=== PATIENT | female | born 1960 | race Caucasian/White ===

== ENCOUNTER 2017-04-03 21:10 | Emergency (ER) | payer MEDICAID, OTHER ==
[~2017-04-03] VITALS: Ht 144.8 cm; Wt 37.6 kg
[~2017-04-03 21:10] MED LIST: /BACIOPOI; /OL10DISTA; /QUET10TA; /QUET10TA PO; /QUET25TA OR; ALBU17IN INH; ALBUTEROL INHALATION; AMBI10TA OR; AMBI10TA PO; AMBI5TAB; AMBI5TAB PO; AMBIEN PO; AMO500 PO; ATIV0.5T; ATIV0.5T3 PO; ATIV1TAB2; AUG875 PO; BENZ5TA PO; COLA100C2; COLA100C2 OR; COLACE PO; DARVOCET-N PO; DEPA1TAB3 PO; DEPA250T32 PO; DEPA500T; DEPA500T OR; DEPA500T2 OR; DOXYCYC100 PO; GABAPOW41 PO; HALO2TA PO; KLON0.5T; LACT10SO PO; LORA2TAB; MAPA325T2 PO; NAPROSY500 PO; NEUR100C PO; NEUR250S PO; NEUR300C; NEUR300C OR; NEUR600T; NEXIUM40 PO; PRED20TAB PO; PREVACID30 PO; QUET20XRTB; QUET30TA; QUET30XR; RISP2TAB12; SENOKOTTAB PO; SERO1TAB PO; SERO200T; SERO200T OR; SERO50TA PO; ZIPR80CAP OR; ZITH250T PO; ZYPR10TA; ZYPR10TA OR; ZYPR20TA; ZYPR5TAB; ZYPREXA PO; omnicef PO
[2017-04-03] MEDS ORDERED: AMBI10TA PO (22:38)
[2017-04-03] MEDS ORDERED: GABA-279 PO (22:38)
[2017-04-03] MEDS ORDERED: SERO1TAB PO (22:38)
[2017-04-03] MEDS ORDERED: GABAPENTIN 100 MG CAP PO ONE (22:45)
[2017-04-03] MEDS ORDERED: ONDANSETRON 4 MG ORAL DISINTEGRATING TAB (S0181) PO ONE (22:45)
[2017-04-03 22:51] VITALS: BP 123/60
== END 2017-04-03 23:02 | disposition home or self-care (01) ==
LOC: M ED 22:24
DX: Z76.0 Encounter for issue of repeat prescription (principal); F99 Mental disorder, not otherwise specified; F17.210 Nicotine dependence, cigarettes, uncomplicated

== ENCOUNTER 2017-12-25 12:07 | Inpatient (IN) | payer MEDICAID, OTHER ==
[2017-12-25 12:39] LABS: BASO # 0.1 10^3/uL (0.0-0.2); BASO % 0.7 % (0.0-1.0); EOS % 0.3 % (0.0-3.0); HEMATOCRIT 43.4 % (36.0-47.0); HEMOGLOBIN 14.4 g/dl (12.0-16.0); IMMATURE GRANULOCYTE % 0.3 % (0-3.0); LYMPH # 1.5 10^3/uL (1.5-4.5); LYMPH % 22.6 % (24.0-44.0); MEAN CORPUSCULAR HEMOGLOBIN 31.2 pg (27.0-33.0); MEAN CORPUSCULAR HGB CONC 33.2 g/dl (32.0-36.5); MEAN CORPUSCULAR VOLUME 93.9 fl (80.0-96.0); MONO # 0.4 10^3/uL (0.0-0.8); MONO % 5.5 % (0.0-5.0); NEUTROPHILS # 4.7 10^3/uL (1.8-7.7); NEUTROPHILS % 70.6 % (36.0-66.0); PLATELET COUNT, AUTOMATED 251 10^3/uL (150-450); RED BLOOD COUNT 4.62 10^6/uL (4.00-5.40); RED CELL DISTRIBUTION WIDTH 12.8 % (11.5-14.5); WHITE BLOOD COUNT 6.7 10^3/uL (4.0-10.0)
[2017-12-25 12:50] LABS: INR 1.04; PROTHROMBIN TIME 13.8 SECONDS (12.4-14.5)
[2017-12-25 12:51] LABS: PARTIAL THROMBOPLASTIN TIME 28.4 SECONDS (26.8-37.9)
[2017-12-25 13:22] LABS: ALBUMIN/GLOBULIN RATIO 1.11 (1.00-1.93); ALKALINE PHOSPHATASE 62 U/L (45-117); ALT/SGPT 13 U/L (12-78); ANION GAP 16 MEQ/L (8-16); AST/SGOT 11 U/L (7-37); BILIRUBIN,DIRECT 0.2 MG/DL (0.0-0.2); BILIRUBIN,TOTAL 0.5 MG/DL (0.2-1.0); BLOOD UREA NITROGEN 21 MG/DL (7-18); CALCIUM LEVEL 9.4 MG/DL (8.5-10.1); CARBON DIOXIDE LEVEL 23 MEQ/L (21-32); CHLORIDE LEVEL 101 MEQ/L (98-107); CPK CREATINE PHOSPHOKINASE 57 U/L (26-192); CREATININE FOR GFR 1.14 MG/DL (0.55-1.30); FREE T4 1.33 NG/DL (0.76-1.46); GLOMERULAR FILTRATION RATE 52.5 (>51); GLUCOSE, FASTING 214 MG/DL (70-100); LIPASE 61 U/L (73-393); POTASSIUM SERUM 3.6 MEQ/L (3.5-5.1); SODIUM LEVEL 140 MEQ/L (136-145); TOTAL PROTEIN 7.6 GM/DL (6.4-8.2); TROPONIN I < 0.02 NG/ML (< 0.10)
[2017-12-25 13:28] LABS: MB/CK RELATIVE INDEX 1.75 (< OR =4)
[2017-12-25 14:33] LABS: ETHYL ALCOHOL (ETHANOL) 0.003 % (0.000-0.010)
[2017-12-25 14:33] LABS: ACETAMINOPHEN LEVEL < 2.0 UG/ML (10.0-30.0); SALICYLATE LEVEL 6.3 MG/DL (5.0-30.0)
[2017-12-25 14:59] LABS: AMPHETAMINES LEVEL URINE NEGATIVE (NEGATIVE); BARBITURATES URINE NEGATIVE (NEGATIVE); BENZODIAZEPINES URINE NEGATIVE (NEGATIVE); CANNABINOIDS URINE NEGATIVE (NEGATIVE); COCAINE METABOLITE URINE NEGATIVE (NEGATIVE); METHADONE URINE NEGATIVE (NEGATIVE); OPIATES URINE NEGATIVE (NEGATIVE); PHENCYCLIDINE URINE NEGATIVE (NEGATIVE)
[2017-12-25] MEDS ORDERED: MOM 30ML SUSPENSION UDC PO (18:15)
[2017-12-25] MEDS: zolPIDEM TARTRATE 10MG TAB PO (21:00)
[2017-12-25] MEDS: QUEtiapine FUMARATE 50 MG TAB PO (21:00)
[2017-12-26] MEDS: INFLUENZA QUADRIVALENT PF VACCINE 0.5ML SYRINGE (90686) IM (08:44)
[2017-12-26] MEDS: LORazepam 1 MG TAB PO (08:45)
[2017-12-26] MEDS: GABAPENTIN 100 MG CAP PO ×2 (14:41→22:11)
[2017-12-26] MEDS: ACETAMINOPHEN TAB 650MG DOSE (2X325MG) PO (15:15)
[2017-12-26 16:03] LABS: VITAMIN B12 LEVEL 560 PG/ML (247-911)
[2017-12-26 16:04] LABS: FOLATE 13.1 NG/ML (>5.4)
[2017-12-26] MEDS ORDERED: QUEtiapine FUMARATE 50 MG TAB PO (21:00)
[2017-12-26] MEDS: zolPIDEM TARTRATE 5 MG TAB PO (22:10)
[2017-12-26] MEDS: QUEtiapine FUMARATE 50 MG TAB PO (22:11)
[2017-12-27] MEDS: QUEtiapine FUMARATE 100 MG TAB PO ×2 (08:33→21:12)
[2017-12-27] MEDS: GABAPENTIN 100 MG CAP PO ×2 (08:33→21:12)
[2017-12-28] MEDS: GABAPENTIN 100 MG CAP PO ×2 (08:36→20:29)
[2017-12-28] MEDS: QUEtiapine FUMARATE 100 MG TAB PO (08:36)
[2017-12-28] MEDS ORDERED: PILL CUTTER/CRUSHER XX (12:45)
[2017-12-28] MEDS: QUEtiapine FUMARATE 50 MG TAB PO (20:29)
[2017-12-28] MEDS: MAALOX 30 ML SUSP *UDC PO (20:29)
[2017-12-28] MEDS: zolPIDEM TARTRATE 5 MG TAB PO (20:29)
[2017-12-29] MEDS: GABAPENTIN 100 MG CAP PO (08:18)
[2017-12-29] MEDS: QUEtiapine FUMARATE 50 MG TAB PO (08:18)
== END 2017-12-29 11:05 | disposition home or self-care (01) | DRG 885 ==
LOC: M ED 12:07 → M ED INP 18:03 → M PSY 20:29
DX: F20.9 Schizophrenia, unspecified (principal); R41.9 Unspecified symptoms and signs involving cognitive functions and awareness; F17.210 Nicotine dependence, cigarettes, uncomplicated; R94.31 Abnormal electrocardiogram [ECG] [EKG]; Z79.899 Other long term (current) drug therapy

== ENCOUNTER 2018-12-18 12:53 | Inpatient (IN) | payer MEDICAID, OTHER ==
[~2018-12-18] VITALS: Ht 144.8 cm; Wt 45.6 kg
[~2018-12-18 12:53] MED LIST changes: +GABA-1171 PO; +PATIENT COMMENT; +QUET5TAB PO
[2018-12-18] MEDS ORDERED: QUET1TAB8 PO (13:55)
[2018-12-18] MEDS ORDERED: TOPI25TA10 PO (13:55)
[2018-12-18] MEDS ORDERED: TOPA50TA8 PO (13:59)
[2018-12-18 14:12] LABS: HEMATOCRIT 38.5 % (36.0-47.0); HEMOGLOBIN 12.7 g/dl (12.0-15.5); MEAN CORPUSCULAR HEMOGLOBIN 30.3 pg (27.0-33.0); MEAN CORPUSCULAR VOLUME 91.9 fl (80.0-96.0); PLATELET COUNT, AUTOMATED 279 10^3/uL (150-450); RED BLOOD COUNT 4.19 10^6/uL (4.00-5.40); WHITE BLOOD COUNT 5.5 10^3/uL (4.0-10.0)
[2018-12-18 14:42] LABS: AMPHETAMINES LEVEL URINE NEGATIVE (NEGATIVE); BARBITURATES URINE NEGATIVE (NEGATIVE); BENZODIAZEPINES URINE NEGATIVE (NEGATIVE); CANNABINOIDS URINE NEGATIVE (NEGATIVE); COCAINE METABOLITE URINE NEGATIVE (NEGATIVE); METHADONE URINE NEGATIVE (NEGATIVE); OPIATES URINE NEGATIVE (NEGATIVE); PHENCYCLIDINE URINE NEGATIVE (NEGATIVE)
[2018-12-18 14:54] LABS: ACETAMINOPHEN LEVEL < 2.0 UG/ML (10.0-30.0); ALBUMIN 3.9 GM/DL (3.2-5.2); ALT/SGPT 32 U/L (12-78); BILIRUBIN,DIRECT 0.1 MG/DL (0.0-0.2); BILIRUBIN,TOTAL 0.4 MG/DL (0.2-1.0); BLOOD UREA NITROGEN 9 MG/DL (7-18); CALCIUM LEVEL 8.8 MG/DL (8.5-10.1); CARBON DIOXIDE LEVEL 29 MEQ/L (21-32); CHLORIDE LEVEL 105 MEQ/L (98-107); ETHYL ALCOHOL (ETHANOL) < 0.003 % (0.000-0.010); GLOMERULAR FILTRATION RATE > 60.0 (>51); GLUCOSE, FASTING 114 MG/DL (70-100); POTASSIUM SERUM 4.2 MEQ/L (3.5-5.1); SALICYLATE LEVEL 2.8 MG/DL (5.0-30.0); SODIUM LEVEL 140 MEQ/L (136-145); TOTAL PROTEIN 7.5 GM/DL (6.4-8.2)
[2018-12-19] MEDS ORDERED: NEUR100C PO (08:08)
[2018-12-19] MEDS ORDERED: QUEtiapine FUMARATE 100 MG TAB PO ONE (08:15)
[2018-12-19] MEDS ORDERED: GABAPENTIN 100 MG CAP PO ONE (08:15)
[2018-12-19] MEDS ORDERED: TOPIRAMATE (TopAMAX) 25 MG TAB PO ONE (08:15)
[2018-12-19] MEDS ORDERED: MOM 30ML SUSPENSION UDC PO PRN (13:00)
[2018-12-19] MEDS ORDERED: traZODone 50 MG TAB PO PRN (13:00)
[2018-12-19] MEDS ORDERED: MAALOX 30 ML SUSP *UDC PO PRN (13:00)
[2018-12-19] MEDS ORDERED: ACETAMINOPHEN TAB 650MG DOSE (2X325MG) PO PRN (13:00)
[2018-12-19] MEDS ORDERED: RISP50INJ IM (13:22)
[2018-12-19 14:22] VITALS: BP 104/56
[2018-12-19] MEDS: GABAPENTIN 100 MG CAP PO SCH ×2 (16:47→21:00)
[2018-12-19] MEDS: QUEtiapine FUMARATE 100 MG TAB PO SCH (16:47)
[2018-12-19] MEDS: TOPIRAMATE (TopAMAX) 25 MG TAB PO SCH (21:00)
[2018-12-19] MEDS: FAMOTIDINE 20 MG TAB PO SCH (21:00)
[2018-12-19] MEDS: QUEtiapine FUMARATE 200 MG TAB PO SCH (21:00)
[2018-12-20] MEDS: QUEtiapine FUMARATE 100 MG TAB PO SCH ×2 (08:15→16:07)
[2018-12-20] MEDS: GABAPENTIN 100 MG CAP PO SCH ×3 (08:16→21:00)
[2018-12-20] MEDS: TOPIRAMATE (TopAMAX) 25 MG TAB PO SCH ×2 (08:16→21:00)
[2018-12-20] MEDS: FAMOTIDINE 20 MG TAB PO SCH ×2 (08:16→21:00)
[2018-12-20] MEDS ORDERED: NICOTINE 21MG/24HR 1 EA TRANSDERMAL TD PRN (09:00)
[2018-12-20] MEDS ORDERED: risperiDONE LONG-ACTING 25 MG/2 ML INJ (J2794) IM SCH (09:00)
--- NOTE | 2018-12-20 09:02 | HPEPDOC ---
[facility] Medical History & Physical Date of Admission Dec 19, 2018 History and Physical PCP: None ATTENDING: Dr. Alan Anglin HPI: 58yoF admitted to [facility] for unspecified depressive disorder, being medically examined today. The pt was apparently recently d/c from [facility] and has been non compliant with her medications. No acute medical complaints today. Denies any fevers, chills, weakness, fatigue, MONTGOMERY, CP, SOB, cough, palpitations, abdominal pain, N/V/D or changes in bowel or bladder habits. PMHx: Schizophrenia Schizoaffective disorder Bipolar disorder History of psychosis edentulous PSHX: Abdominal hernia repair SOCHX: Resides in: [place] Marital Status: Kids: None Employment: Unemployed Tobacco use: One pack per day ETOH: Denies Illicit Drugs: Denies IV Drug Use: Denies Tattoos done unprofessionally: Denies FAMHX: Mother: , unknown Father: , unknown Siblings: Alive, unknown Children: None Unexpected deaths due to medical reasons: None. ROS: As noted in HPI, otherwise 11pt ROS of systems reviewed and remarkable only for LMP unknown. PE: GEN: 57 yo F, appears stated age. Well-nourished, well developed. No acute distress. Alert and oriented x 3. Disorganized speech, tangential. HEENT: Normocephalic, atraumatic. Pupils are equal, round, and reactive to light. Extraocular movements are intact. No nystagmus appreciated. Sclera are nonicteric. Conjunctiva without injection. Nose midline. Nasal turbinates without bogginess. EACs both patent BL. TMs both visualized and melara with good cone of light, no bulging or erythema. No facial asymmetry. Moist mucous membranes. Edentulous. Pharynx pink and moist, no cobblestoning. Neck supple, trachea midline. No lymphadenopathy or thyromegaly appreciated. CHEST: Regular rate and rhythm, +S1, +S2 LUNGS: Clear to auscultation bilaterally. No wheezes, rales, or rhonchi. Breathing appears symmetric and easy. Patient is speaking in full sentences. No accessory muscle use. ABD: Round, soft, non-tender, non-distended. +Bowel sounds throughout. No rebound or guarding. No costovertebral angle tenderness. EXT: Pulses 2+ bilaterally dorsalis pedis and radial. No lower extremity edema appreciated. SKIN: [place], dry, warm. Capillary refill <2sec. No rashes. NEURO: Alert and oriented x 3. Cranial nerves III-XII are intact. No focal deficits appreciated. EKG: SINUS RHYTHM NSTTW ABNORMALITY NO PRIOR FOR COMPARISON Electronically Signed On 12-25-2017 17:49:48 EDT by Teagan Petty A&P: 57yoF admitted to [facility] for unspecified depressive disorder 1. Psych. Plan per Psychiatry. EKG on file. 2. Nicotine dependence. Patch available. 3. Follow up. No Primary Care Provider. Will attempt to establish PCP on discharge. 4. Staff member Natasha HOLDER present throughout exam. Vital Signs Vital Signs Date Time Temp Pulse Resp B/P (MAP) Pulse Ox O2 Delivery O2 Flow Rate FiO2 12/19/18 14:22 99.0 102 16 104/56 (72) 12/19/18 06:05 99 Room Air Laboratory Data Labs 24H Item Value Date Time White Blood Count 5.5 10^3/uL 12/18/18 1400 Red Blood Count 4.19 10^6/uL 12/18/18 1400 Hemoglobin 12.7 g/dl 12/18/18 1400 Hematocrit 38.5 % 12/18/18 1400 Mean Corpuscular Volume 91.9 fl 12/18/18 1400 Mean Corpuscular Hemoglobin 30.3 pg 12/18/18 1400 Mean Corpuscular Hemoglobin Concent 33.0 g/dl 12/18/18 1400 Red Cell Distribution Width 13.1 % 12/18/18 1400 Platelet Count 279 10^3/uL 12/18/18 1400 Sodium Level 140 MEQ/L 12/18/18 1400 Potassium Level 4.2 MEQ/L 12/18/18 1400 Chloride Level 105 MEQ/L 12/18/18 1400 Carbon Dioxide Level 29 MEQ/L 12/18/18 1400 Anion Gap 6 MEQ/L L 12/18/18 1400 Blood Urea Nitrogen 9 MG/DL 12/18/18 1400 Creatinine 0.70 MG/DL 12/18/18 1400 Glomerular Filtration Rate > 60.0 12/18/18 1400 Fasting Glucose 114 MG/DL H 12/18/18 1400 Calcium Level 8.8 MG/DL 12/18/18 1400 Total Bilirubin 0.4 MG/DL 12/18/18 1400 Direct Bilirubin 0.1 MG/DL 12/18/18 1400 Aspartate Amino Transf (AST/SGOT) 15 U/L 12/18/18 1400 Alanine Aminotransferase (ALT/SGPT) 32 U/L 12/18/18 1400 Alkaline Phosphatase 79 U/L 12/18/18 1400 Total Protein 7.5 GM/DL 12/18/18 1400 Albumin 3.9 GM/DL 12/18/18 1400 Albumin/Globulin Ratio 1.08 12/18/18 1400 Thyroid Stimulating Hormone (TSH) 2.720 uIU/ML 12/18/18 1400 Salicylates Level 2.8 MG/DL L 12/18/18 1400 Urine Opiates Screen NEGATIVE 12/18/18 1400 Urine Methadone Screen NEGATIVE 12/18/18 1400 Acetaminophen Level < 2.0 UG/ML L 12/18/18 1400 Urine Barbiturates Screen NEGATIVE 12/18/18 1400 Urine Phencyclidine Screen NEGATIVE 12/18/18 1400 Urine Amphetamines Screen NEGATIVE 12/18/18 1400 Urine Benzodiazepines Screen NEGATIVE 12/18/18 1400 Urine Cocaine Metabolite Screen NEGATIVE 12/18/18 1400 Urine Cannabinoids Screen NEGATIVE 12/18/18 1400 Ethyl Alcohol Level < 0.003 % 12/18/18 1400 Home Medications Scheduled Gabapentin (Neurontin) 100 Mg Cap, 100 MG PO TID Quetiapine Fumerate (Quetiapine Fumarate) 100 Mg Tab, 200 MG PO QHS Risperidone (Risperdal Consta) 50 Mg/2 Ml Inj, [address] ASHWINI GARZA FOR INJECTION ON 12/20 Topiramate (Topiramate) 25 Mg Tab, 25 MG PO DAILY Allergies Coded Allergies: No Known Drug Allergy (Verified Allergy, Unknown, 01/08/13) Delmis Pryor Dec 20, 2018 09:01
--- NOTE | 2018-12-20 11:08 | MHHPEPDOC ---
General Date Of Admission: Dec 19, 2018 Legal Status: 9.39 Chief Complaint "I ate poisoned meat last night and I've been sick all day" History of Present Illness HISTORY OF THE PRESENT ILLNESS: Patient is a 58 -year-old , female, with a history of schizoaffective d/o, over 31 admits [facility] for psychosis, d/c [facility] 12/11 after 3mo stay who was brought in by PD on 9.60 placed by Izabella GALVIN AOT coordinator due to bt not fulfilling AOT obligations after d/c [facility]. Per ED pt has been noncompliant on her medication and with her treatment, decompensating, hyperverbal, disorganized, and having bizarre paranoid delusions. Stated in the ED, "I ate poisoned meat last night and I've been sick all day." Pt is a poor historian so history gathered from previous records Psychiatric Review of Systems N[place]ka (4 or more days of): expansive mood, grandiosity, decreased need for sleep, talkativity, pressured, flight of ideas, distractibility Psychosis: delusions, paranoia, disorganization Anxiety: situational anxiety, stressor related anxiety Anxiety/ 6 months or more of: restlessness, keyed up, difficulty concentrating, irritability Past Psychiatric History Previous Psychiatric Diagnosis: schizoaffective d/o Previous Psychiatric Admissions: over 31 admission [facility], last 12/2017 for psychosis. D/c [facility] after 3mo stay on 12/11/18 Suicide Attempts: denies Psychiatric Follow-up: Izabella GALVIN AOT coordinator Psychiatric medications: seroquell, topamax, neurontin, risperdal consta q2wk next dose due 12/20/18 Past Medical History Medical Problems denies Head Injury: No Seizures: No Hospitalizations: Yes Surgeries: Yes (: Abdominal hernia repair) Family Medical/Psychiatric HX Medical Problems noncontributory Psychiatric Disorders: No Addiction: No Suicide Attemps/Completions: No Addiction History other (utox neg) Social History Childhood: Born in [place], parents, no siblings Abuse/Trauma:none known Current Living Situation: lives alone in [facility] Education: highest grade was 9th grade Employment: worked as regulatory assistant, currently on disability Social Support: Izabella GALVIN AOT coordinator Legal: none known Marital: , no children Born in [place], parents, no siblings, highest grade was 9th grade, worked as regulatory assistant, , lives alone in [facility], no children Mental Status Examination General Appearance: well groomed, ds/not appear stated age (older), personal clothing Build: thin, other (petitie) Demeanor: very figety, other (hyperactive) Eye Contact: fair Activity: anxious, other (hyperactive) Behavior: cooperative, hyperactive Speech: rapid, pressured Mood: elevated, hypomanic Mood "speedy" Affect: anxious, other (hyperactive) Thought Process: concrete, tangential, associative, racing Thought Content (Delusions): bizarre, denies SI, HI, AVH, paranoia, delusions Thought Content (Other): preoccupied Thought Content (Aggressive): none reported Perception (Hallucinations): none reported Perception (Other): none reported Cognition (Impairment of): attention/concentration, ability to abstract Cognition(Intelligence Est.): borderline Oriented: Awake, Alert, Oriented times three Insight: fair Judgment: Fair Psychosis: Associations, Abstract Thinking Diagnoses Schizoaffective d/o Assessment Pt seen in room, was sleeping but woke up quickly when aroused. Hyperverbal and tangential going into rapid conversation about missing an appt her shot so juedged called and ordered her here "or maybe it was different," confused about times and can't remember exactly if she received risperdal consta IM this am but thinks she did. (per record received it at 9am this am) Endorses feeling "speedy" but improved from previous. Slightly disorganized. Appears hypomanic. Denies SI/HI, hallucinations. Feels safe here. Initial Treatment Plan 1. Patient was admitted on a [9.39] status. 2. Complete history was obtained. 3. With patients permission, family will be contacted and database will be expa nded. 4. Patients medication regimen will be reviewed and changed accordingly. 5. Patient will be provided with protected environment. 6. Patient will be treated with individual, group, and milieu therapies. 7. Patient will receive supportive psych-education. 8. Discharge planning will commence immediately. 9. Outpatient follow-up treatment will be strongly recommended. 10. The initial treatment plan will focus initially on: * Depression. * Risk for suicide. * Substance abuse. ESTIMATED LENGTH OF STAY: - DAYS. TIME SPENT COUNSELING AND COORDINATING INITIAL CARE: minutes. Vital Signs Vital Signs Date Time Temp Pulse Resp B/P (MAP) Pulse Ox O2 Delivery O2 Flow Rate FiO2 12/19/18 14:22 99.0 102 16 104/56 (72) 12/19/18 06:05 99 Room Air Medications Scheduled Gabapentin (Neurontin) 100 Mg Cap, 100 MG PO TID, (Reported) Quetiapine Fumerate (Quetiapine Fumarate) 100 Mg Tab, 200 MG PO QHS, (Reported) Risperidone (Risperdal Consta) 50 Mg/2 Ml Inj, 50 MG IM Q2WK, (Reported) SANTIAGO GRAY DR. APPT FOR INJECTION ON 12/20 Topiramate (Topiramate) 25 Mg Tab, 25 MG PO DAILY, (Reported) Allergies Coded Allergies: No Known Drug Allergy (Verified Allergy, Unknown, 01/08/13) CLAUDIA NUNEZ DO Dec 20, 2018 11:08 am
[2018-12-20 18:00] VITALS: BP 100/50
[2018-12-20] MEDS ORDERED: LORazepam 1 MG TAB PO PRN (19:00)
[2018-12-20] MEDS: QUEtiapine FUMARATE 200 MG TAB PO SCH (21:00)
[2018-12-21 06:18] VITALS: BP 108/56
[2018-12-21] MEDS: QUEtiapine FUMARATE 100 MG TAB PO SCH (08:15)
[2018-12-21] MEDS: FAMOTIDINE 20 MG TAB PO SCH (08:15)
[2018-12-21] MEDS: GABAPENTIN 100 MG CAP PO SCH (08:15)
[2018-12-21] MEDS: TOPIRAMATE (TopAMAX) 25 MG TAB PO SCH (08:15)
--- NOTE | 2018-12-21 09:34 | MHDSPDOC ---
[facility] Discharge Summary Discharge Summary DATE OF ADMISSION: Dec 19, 2018 at 12:52 pm DATE OF DISCHARGE: Dec 21, 2018 DISCHARGE DIAGNOSES: Schizoaffective d/o REASON FOR ADMISSION: Patient is a 58 -year-old , female, with a history of schizoaffective d/o, over 31 admits [facility] for psychosis, d/c [facility] / after 3mo stay who was brought in by PD on 960 placed by Izabella Rich [facility] AOT coordinator due to bt not fulfilling AOT obligations after d/c [facility]. Per ED pt has been noncompliant on her medication and with her treatment, decompensating, hyperverbal, disorganized, and having bizarre paranoid delusions. Stated in the ED, "I ate poisoned meat last night and I've been sick all day." Pt is a poor historian so history gathered from previous records CONSULTANTS INVOLVED: none TREATMENT AND PROGRESS ON THE UNIT : Pt was admitted to [facility], seen for psychiatric assessment and restarted on her outpatient seroquel, gabapentin, topiramate. She was administered her risperdal consta yesterday that she tolerated well and symptoms improved to baseline paranoia, hyperactivity, rapid speech, anxiety. She was provided trazodone 50mg qhs prn insomnia. Pt found her medications beneficial and tolerated them well. She attended groups daily during her stay. Her symptoms improved with treatment. On day of discharge she denied depression, anxiety, insomnia, SI/HI, hallucinations. Bizarre delusions and paranoia at baseline but appears to be functioning very (best seen) well per staff based on her history. She was discharged home with follow-up at [facility] and [facility]. She felt safe for discharge DISCHARGE ASSESSMENT: Pt seen in milieu with d/c planner/scheduler stating she just here to get her shot and should be able to go home today as she has a lot of things to do there. Hyperverbal and anxious about going home. States someone, not me, told her she was going home and she's been here long enough. Pt is at baseline hyperactive, paranoid, has bizarre thoughts, anxious, and hyperverbal but appears to be functioning very well (best seen) per staff based on her history. Received risperdal consta IM yesterday and is tolerating it well with benefit in symptoms. Denies depression, anxiety, insomnia, SI/HI, hallucinations. Bizarre delusions and paranoia at baseline. Feels safe to be discharge home to the care of AOT. MENTAL STATUS EXAMINATION ON DISCHARGE: General Appearance: well groomed, ds/not appear stated age (older), personal clothing Build: thin, other (petitie) Demeanor: anxious Eye Contact: fair Activity: anxious, other (hyperactive) Behavior: cooperative, at baseline hyperactive Speech: at baseline rapid, pressured Mood: irritable Mood "I need to go home" Affect: anxious, other (hyperactive) Thought Process: concrete, at baseline tangential, associative, racing Thought Content (Delusions): denies SI, HI, AVH, at baseline paranoia and delusions Thought Content (Other): at baseline preoccupied Thought Content (Aggressive): none reported Perception (Hallucinations): none reported Perception (Other): none reported Cognition (Impairment of): at baseline attention/concentration, ability to abstract Cognition(Intelligence Est.): borderline Oriented: Awake, Alert, Oriented times three Insight: fair Judgment: Fair Psychosis: Associations, Abstract Thinking MEDICATIONS ON DISCHARGE: Neurontin 100 MG PO TID Quetiapine 200 MG PO QHS, Risperdal Consta 50 Mg IM Q2WK Topiramate 25 MG PO DAILY PLAN/FOLLOWUP ARRANGEMENTS: D/c home with [facility] and [facility]. The amount of time spent in the coordination of care for this patient was approximately 30 minutes. Vital Signs/I&Os Vital Signs Date Time Temp Pulse Resp B/P (MAP) Pulse Ox O2 Delivery O2 Flow Rate FiO2 12/21/18 06:18 97.8 81 12 108/56 (73) 12/19/18 06:05 99 Room Air Medications Scheduled Gabapentin (Neurontin) 100 Mg Cap, 100 MG PO TID, (Reported) Quetiapine Fumerate (Quetiapine Fumarate) 100 Mg Tab, 200 MG PO QHS, (Reported) Risperidone (Risperdal Consta) 50 Mg/2 Ml Inj, 50 MG IM Q2WK, (Reported) SANTIAGO GRAY DR. APPKishor FOR INJECTION ON 12/20 Topiramate (Topiramate) 25 Mg Tab, 25 MG PO DAILY, (Reported) Allergies Coded Allergies: No Known Drug Allergy (Verified Allergy, Unknown, 01/08/13) CLAUDIA NUNEZ DO Dec 21, 2018 9:20 am
[2018-12-21] MEDS ORDERED: RISP50INJ IM (12:32)
== END 2018-12-21 12:55 | disposition home or self-care (01) | DRG 750 ==
LOC: M ED 12:53 → M ED INP 12-19 12:52 → M PSY 12-19 13:39
PROVIDERS: ADMIT Psychiatry & Neurology Psychiatry; ATTEND Psychiatry & Neurology Psychiatry
DX: F25.9 Schizoaffective disorder, unspecified (principal); F17.200 Nicotine dependence, unspecified, uncomplicated; Z79.899 Other long term (current) drug therapy

== ENCOUNTER 2020-03-29 08:26 | Inpatient (IN) | payer MEDICARE, OTHER ==
[~2020-03-29] VITALS: Ht 144.8 cm; Wt 44.5 kg
[~2020-03-29 08:26] MED LIST changes: -/OL10DISTA; -/QUET10TA; -/QUET10TA PO; -/QUET25TA OR; -HALO2TA PO; +HALO2TAB26 PO; -MAPA325T2 PO; +MAPA325T8 PO; +QUET100T2 PO; -QUET20XRTB; -QUET30XR; +QUET50TA3 PO; -QUET5TAB PO; +RISP50INJ IM; +SERO1TAB; +SERO1TAB3 OR; +SERO200T43; +SERO300T20; +TOPA50TA8 PO; +TOPI25TA10 PO; +ZYPR1TAB4
[2020-03-29] MEDS ORDERED: MELATAB3 PO (08:37)
[2020-03-29] MEDS ORDERED: RISP-9 PO (08:37)
[2020-03-29] MEDS ORDERED: methylPREDNISolone 125MG 2ML VIAL IV ONE (09:45)
[2020-03-29] MEDS: COMBIVENT RESPIMAT 100-20MCG INHALER 4GM INH SCH ×4 (09:45→10:15)
[2020-03-29 09:48] LABS: BASO % 0.4 % (0.0-1.0); EOS % 0.3 % (0.0-3.0); HEMATOCRIT 35.5 % (36.0-47.0); HEMOGLOBIN 10.6 g/dl (12.0-15.5); LYMPH # 0.9 10^3/uL (1.5-5.0); LYMPH % 9.2 % (24.0-44.0); MEAN CORPUSCULAR HEMOGLOBIN 25.4 pg (27.0-33.0); MEAN CORPUSCULAR HGB CONC 29.9 g/dl (32.0-36.5); MEAN CORPUSCULAR VOLUME 84.9 fl (80.0-96.0); MONO # 0.8 10^3/uL (0.0-0.8); MONO % 8.5 % (0.0-5.0); NEUTROPHILS # 8.1 10^3/uL (1.5-8.5); NEUTROPHILS % 81.3 % (36.0-66.0); PLATELET COUNT, AUTOMATED 248 10^3/uL (150-450); RED BLOOD COUNT 4.18 10^6/uL (4.00-5.40); WHITE BLOOD COUNT 9.9 10^3/uL (4.0-10.0)
--- NOTE | 2020-03-29 09:56 | REP ---
Portable chest x-ray: Single view. History: Dyspnea and cough. Comparison chest x-ray: December 25, 2017. Findings: Oxygen delivery tubing is seen. Heart size is increased compared with the December 25, 2017 study. Pulmonary vasculature is cephalized and somewhat congested. Mildly prominent interstitial markings. No jennifer pleural effusion or pulmonary edema. Impression: Cardiomegaly with vascular congestion, question mild CHF. Heart is enlarged compared with the December 25, 2017 study. Electronically Signed by Carlos Draper MD 03/29/2020 09:47 A
[2020-03-29 10:19] LABS: ALBUMIN 3.2 GM/DL (3.2-5.2); ALT/SGPT 30 U/L (12-78); BILIRUBIN,DIRECT 0.2 MG/DL (0.0-0.2); BILIRUBIN,TOTAL 0.5 MG/DL (0.2-1.0); BLOOD UREA NITROGEN 9 MG/DL (7-18); CALCIUM LEVEL 8.4 MG/DL (8.5-10.1); CARBON DIOXIDE LEVEL 35 MEQ/L (21-32); CHLORIDE LEVEL 100 MEQ/L (98-107); CK-MB VALUE MASS 2.3 NG/ML (<3.6); CPK CREATINE PHOSPHOKINASE 148 U/L (26-192); CREATININE FOR GFR 0.69 MG/DL (0.55-1.30); GLOMERULAR FILTRATION RATE > 60.0 (>51); GLUCOSE, FASTING 101 MG/DL (70-100); MB/CK RELATIVE INDEX 1.55 (< OR =4); NT-PRO BNP 1287 PG/ML (<125); POTASSIUM SERUM 4.1 MEQ/L (3.5-5.1); SODIUM LEVEL 140 MEQ/L (136-145); TOTAL PROTEIN 6.5 GM/DL (6.4-8.2); TROPONIN I < 0.02 NG/ML (< 0.10)
[2020-03-29] MEDS ORDERED: FUROSEMIDE 40MG/4ML VIAL (J1940) IV ONE (10:30)
--- NOTE | 2020-03-29 12:32 | HPEPDOC ---
[facility] Medical History & Physical Date of Admission Mar 29, 2020 Date of Service: Mar 29, 2020 Attending Physician: Luz Maria Loya MD History and Physical CHIEF COMPLAINT: Bedbug infestation, shortness of breath HISTORY OF PRESENT ILLNESS: Patient is a 51 atrial female with past medical history of schizoaffective disorder, schizophrenia, bipolar disorder, history of psychosis, insomnia who presented to [facility] ER after being found under picnic table near her residence. When the patient was found she was covered in bedbugs. The patient states she was sleeping outside because her house has been infested, worsening over the past 1 year. It was noted that the patient had bites all over her body and she was brought to the ER for further evaluation. In the emergency room the patient's vital signs were stable, labs were unremarkable. The patient was found to be hypoxic with PCO2 of 30s. The patient was placed on 3 L of oxygen and O2 sat increased to 95%. Chest x-ray showed Cardiomegaly with vascular congestion, question mild CHF. Heart is enlarged compared with the December 25, 2017 study. BNP was over 1000. Troponin was negative. ECG showed sinus rhythm with possible left atrial enlargement, possible right ventricular hypertrophy, nonspecific T-wave abnormalities. When compared to prior on file there were similar. The patient states that she has had chest pain over the past 1 year localized anteriorly, nonradiating, 3 out of 10 on pain scale, pressure-like. She states sometimes is associated with shortness of breath, which she is also had over the past 1 year. The patient is a smoker but has no diagnosis of COPD on file. She had no wheezing on exam to suspect COPD exacerbation. The patient was given Lasix and DuoNeb's in the emergency room which improved her shortness of breath somewhat but the patient still required several liters of oxygen. Over the course of her time in the emergency room they also attempted decontaminate her from bedbugs. The patient complained of intermittent bilateral lower extremity cramping, potassium was normal. Magnesium and phosphorus were pending. The patient was admitted for further treatment of acute congestive heart failure, type unknown and bedbug infestation. On admission patient denied MONTGOMERY, CP, cough, palpitations, abdominal pain, N/V/D or changes in bowel or bladder habits. PMHx: Schizophrenia Schizoaffective disorder Bipolar disorder History of psychosis PSHX: Abdominal hernia repair SOCHX: Resides in: [place] Marital Status: Kids: None Employment: Unemployed Tobacco use: One pack per day ETOH: Denies Illicit Drugs: Denies IV Drug Use: Denies Tattoos done unprofessionally: Bekah Has had several inpatient mental health admission for psychiatric history FAMHX: Mother: , unknown Father: , unknown Siblings: Alive, unknown Children: None Unexpected deaths due to medical reasons: None. ALLERGIES: Please see below. HOME MEDICATIONS: Please see below PHYSICAL EXAMINATION: CONSTITUTIONAL: Confused at times, needing redirection often. No acute distress, resting comfortably, AAO x 3 EYES: PERRLA, EOM intact,mild swelling around eyes HENT, MOUTH: Normocephalic, atraumatic, moist mucous membranes NECK: SUPPLE, no JVD, no lymphadenopathy, no carotid bruit CV: Regular rate and rhythm, S1S2 normal, no murmurs/rubs/gallops RESPIRATORY: crackles in bilateral lung bases. no rales/rhonchi/wheezes GI: BS positive in 4 quadrants, soft, nontender, nondistended, no rebound or guarding, no organomegaly : Deferred MUSCULOSKELETAL: thin extremities, Normal ROM. No cyanosis, clubbing, swelling, joint deformity, extremity edema INTEGUMENTARY: Insect punctate bite burrell all over body, what appears to be almost "petechial" rash but may be bites. NEUROLOGIC: Cranial Nerves II-XII are intact, no focal deficits PSYCHIATRIC: Mood and affect are normal LABORATORY DATA: Please see below IMAGING: CXR: Cardiomegaly with vascular congestion, question mild CHF. Heart is enlarged c ompared with the December 25, 2017 study. ASSESSMENT: 89-year-old female admitted for acute hypoxic respiratory failure likely secondary to congestive heart failure, new diagnosis. PLAN: 1. Acute hypoxic respiratory failure secondary to congestive heart failure, new diagnosis. Please see plan below for treatment. 2. Congestive heart failure exacerbation, new diagnosis. BNP 1287, troponin negative. Chest x-ray above. Hypoxia with O2 sat dropping as low as in the 30s, currently on 3 L. Started on Lasix; however, cautious with twice a day dosing due to lower than normal blood pressure. Holding beta narayan due to lower than normal blood pressure. Follow-up echocardiogram, telemetry. 3. Bedbug infestation. The patient was decontaminated some in the emergency room. We'll start triamcinolone cream for itching when necessary. Due to the patient's mental health situation and residing in infested residence, social work has been consult it to further assess. Contact precautions. 4. Hypotension, baseline. The patient is very tiny and upon review of prior admissions, baseline systolic BP ranges anywhere between [address]. Cautious with diuresing or considering adding a beta narayan with this blood pressure. Monitor on telemetry. 5. Lower leg cramping. Potassium originally normal, follow-up repeat potassium, magnesium and phosphorus. Replace when necessary. 6. Schizophrenia/schizoaffective/bipolar disorder/history of psychosis. The patient has an odd personality; however, is not out of control and can be redirected with questioning currently. Resume home psychiatric medications. 7. Rash. Appears petechial; however, platelets are within normal limits. Unknown if this rash is reactive to the bug bites but it is present all over her body. Monitor closely. 8. DVT prophylaxis. SCDs, teds. Avoid anticoagulation with current rash. DISPOSITION: Currently admitted under inpatient status. Will need to discuss case with social work, as her current residence is infested with bedbugs. Discharge plan is not yet known due to this. Vital Signs Vital Signs Date Time Temp Pulse Resp B/P (MAP) Pulse Ox O2 Delivery O2 Flow Rate FiO2 03/29/20 10:45 114/66 (82) 03/29/20 10:41 99 03/29/20 10:24 18 03/29/20 10:11 98 Nasal Cannula 2.0 03/29/20 08:35 98.3 Laboratory Data Labs 24H Laboratory Tests 2 03/29/20 09:34: POC pH (Misc Panel) 7.370, POC Base Excess (Misc Panel) 8.0H, POC Saturated Percent O2 (Misc) 71L, POC pO2 (Misc Panel) 39.0*L, POC pCO2 (Misc Panel) 57.3H, POC HCO3 (Misc Panel) 33.1H, POC Total CO2 (Misc Panel) 35.0H 03/29/20 09:35: Immature Granulocyte % (Auto) 0.3, Neutrophils (%) (Auto) 81.3H, Lymphocytes (%) (Auto) 9.2L, Monocytes (%) (Auto) 8.5H, Eosinophils (%) (Auto) 0.3, Basophils (%) (Auto) 0.4, Neutrophils # (Auto) 8.1, Lymphocytes # (Auto) 0.9L, Monocytes # (Auto) 0.8, Eosinophils # (Auto) 0.0, Basophils # (Auto) 0.0, Nucleated Red Blood Cells % (auto) 0.2H, Anion Gap 5L, Glomerular Filtration Rate > 60.0, Lactic Acid Level 1.0, Calcium Level 8.4L, Total Bilirubin 0.5, Direct Bilirubin 0.2, Aspartate Amino Transf (AST/SGOT) 15, Alanine Aminotransferase (ALT/SGPT) 30, Alkaline Phosphatase 67, Total Creatine Kinase 148, Creatine Kinase MB 2.3, Creatine Kinase MB Relative Index 1.55, Troponin I < 0.02, QW-Ltk-S-Type Natriuretic Peptide 1287H, Total Protein 6.5, Albumin 3.2, Albumin/Globulin Ratio 1.0L, Thyroid Stimulating Hormone (TSH) 2.060 CBC/BMP Laboratory Tests 03/29/20 09:35 Microbiology Microbiology 03/29/20 Blood Culture, Received Pending 03/29/20 Blood Culture, Received Pending 03/29/20 Respiratory Virus Panel (PCR) (SUZANNE) - Final, Complete Home Medications Scheduled Gabapentin (Neurontin) 100 Mg Cap, 100 MG PO TID Melatonin (Melatonin) 5 Mg Tablet, 5 MG PO QHS pt states that she has not started this yet Risperidone (Risperidone) 2 Mg Tablet, 2 MG PO BID Allergies Coded Allergies: No Known Drug Allergies (Verified Allergy, Unknown, 03/29/20) A-FIB/CHADSVASC A-FIB History Current/History of A-Fib/PAF?: No Current PO Anticoag Therapy: No Age/Risk Factor Scoring CHADSVASC: CHADSVASC Response (Comments) Value Age Risk Factor Age < 65 years old 0 Gender Risk Factor Female 1 Hx of CHF No 0 Hx of HTN No 0 Hx of Stroke/TIA/or VTE No 0 Hx of Diabetes No 0 Hx of Vascular Disease No 0 Total 1 Treatment Treatment ordered: NONE (petechial rash ) Luz Maria Loya MD Mar 29, 2020 12:32
[2020-03-29] MEDS ORDERED: TRIAMCINOLONE ACET 0.1% CREAM 15 GM TOP PRN (12:45)
[2020-03-29] MEDS ORDERED: ALBUTEROL SULFATE 2.5 MG/0.5 ML INH NEB SOLN NEB PRN (14:00)
[2020-03-29 14:07] VITALS: BP 101/56
[2020-03-29 15:20] LABS: PHOSPHORUS LEVEL 4.6 MG/DL (2.5-4.9)
[2020-03-29] MEDS ORDERED: FUROSEMIDE 20MG/2ML VIAL (J1940) IV SCH (17:00)
[2020-03-29] MEDS: GABAPENTIN 100 MG CAP PO SCH ×2 (17:21→21:23)
[2020-03-29] MEDS: IPRATROPIUM 0.5MG/ALBUTEROL 2.5MG INH SOL UD 3ML (DUONEB) NEB SCH (18:13)
[2020-03-29] MEDS: risperiDONE 2 MG TAB PO SCH (21:22)
[2020-03-29 22:00] VITALS: BP 102/65
[2020-03-30] MEDS: IPRATROPIUM 0.5MG/ALBUTEROL 2.5MG INH SOL UD 3ML (DUONEB) NEB SCH ×5 (00:41→20:09)
[2020-03-30 06:00] VITALS: BP 121/73
[2020-03-30 06:08] LABS: MEAN CORPUSCULAR HEMOGLOBIN 25.3 pg (27.0-33.0); MEAN CORPUSCULAR HGB CONC 29.4 g/dl (32.0-36.5); MEAN CORPUSCULAR VOLUME 86.1 fl (80.0-96.0); PLATELET COUNT, AUTOMATED 234 10^3/uL (150-450); RED BLOOD COUNT 3.95 10^6/uL (4.00-5.40); WHITE BLOOD COUNT 8.6 10^3/uL (4.0-10.0)
[2020-03-30 06:34] LABS: BLOOD UREA NITROGEN 15 MG/DL (7-18); CALCIUM LEVEL 8.6 MG/DL (8.5-10.1); CARBON DIOXIDE LEVEL 39 MEQ/L (21-32); CHLORIDE LEVEL 101 MEQ/L (98-107); CREATININE FOR GFR 0.68 MG/DL (0.55-1.30); GLOMERULAR FILTRATION RATE > 60.0 (>51); GLUCOSE, FASTING 98 MG/DL (70-100); POTASSIUM SERUM 4.3 MEQ/L (3.5-5.1); SODIUM LEVEL 142 MEQ/L (136-145)
[2020-03-30] MEDS: GABAPENTIN 100 MG CAP PO SCH ×3 (09:29→20:08)
[2020-03-30] MEDS: risperiDONE 2 MG TAB PO SCH ×2 (09:29→20:08)
[2020-03-30] MEDS: FUROSEMIDE 40MG/4ML VIAL (J1940) IV SCH (09:34)
[2020-03-30] MEDS: methylPREDNISolone 125MG 2ML VIAL IV SCH ×2 (12:09→20:08)
[2020-03-30 14:00] VITALS: BP 143/73
--- NOTE | 2020-03-30 15:41 | ECGEPIP ---
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
--- NOTE | 2020-03-30 17:11 | IPNPDOC ---
Date Seen The patient was seen on 03/30/20. Progress Note SUBJECTIVE: Increased wheeziness this AM, neg 2440 ml/24 hrs. Does not seem to have awareness of why she is here. I have repetitively told her why she is here; however, she does not seem to grasp what I am saying. Possibly denial vs. not having capacity. Consulting psychiatry to assess capacity to make medical decisions. Denies chest pain, increased shortness of breath, n/v/d. OBJECTIVE: VITAL SIGNS: Please see below PHYSICAL EXAMINATION: CONSTITUTIONAL: Confused at times, still needing redirection often and needing us to repeat to her what we're saying. No acute distress, resting comfortably, AAO x 2. Uknown baseline. EYES: PERRLA, EOM intact,mild swelling around eyes HENT, MOUTH: Normocephalic, atraumatic, moist mucous membranes. NECK: SUPPLE, no JVD, no lymphadenopathy, no carotid bruit CV: Regular rate and rhythm, S1S2 normal, no murmurs/rubs/gallops RESPIRATORY:wheezing bilaterally today, improved crackles in bilateral lung bases. no rales/rhonchi GI: BS positive in 4 quadrants, soft, nontender, nondistended, no rebound or guarding, no organomegaly : Deferred MUSCULOSKELETAL: thin extremities, Normal ROM. No cyanosis, clubbing, swelling, joint deformity, extremity edema INTEGUMENTARY: Insect punctate bite burrell all over body, what appears to be almost "petechial" rash but may be bites. NEUROLOGIC: Cranial Nerves II-XII are intact, no focal deficits PSYCHIATRIC: Mood and affect are normal LABORATORY DATA: Please see below IMAGING: CXR: Cardiomegaly with vascular congestion, question mild CHF. Heart is enlarged compared with the December 25, [address] head: Pending ASSESSMENT: 89-year-old female admitted for acute hypoxic respiratory failure likely secondary to congestive heart failure (new diagnosis), COPD exacerbation, confusion r/o cause. PLAN: 1. Acute hypoxic respiratory failure secondary to congestive heart failure (new diagnosis) and COPD exacerbation. Please see plan below for treatment. 2. Congestive heart failure exacerbation, new diagnosis. Neg 2.4 L/24 hrs. Currently remains on 3 L NC. Not on home O2, smoker. Echo today. C/w lasix, holding BB due to lower than normal BP. Follow-up echocardiogram, telemetry. 3. COPD exacerbation. Smoker, increased wheezing today, remaining on 3 L NC. Started methylprednisolone Q8hrs, duonebs ATC, albuterol, levofloxacin, acapella. 4. Confusion, acute vs. chronic, neurologic vs. systemic? Does not understand, after repetative reinforcement by myself, why she is here, what she is here for. Awake , hard of hearing but alertWhen I tell her she is here for "heart failure" and explain what it is, she says "no. I am here for bed bugs". My concern is her lack of capacity to understand current situation. She lives in [facility], bed bug infested home and states she has for years. She was found sleeping under a picnic table covered in bed bugs the size of "gum drops". When asked why she didn't say anything to anyone, she says I have been for years". Unknown b aseline, multiple psychiatric diagnoses. F/u daily labs, Vit B12, Vit D, TSH, UA, UDS, ESR, HUSSEIN. Consider AM cortisol. Discussed case with Dr. Lowe psychiatry. Will start with CT head, psych evaluation. 5. Bedbug infestation. No bites appear infected. C/w triamcinolone cream for itching when necessary. Due to the patient's mental health situation and residing in infested residence, social work has been consult it to further assess. Contact precautions. 4. Hypotension, baseline. The patient is very tiny and upon review of prior admissions, baseline systolic BP ranges anywhere between [address]. Cautious with diuresing or considering adding a beta narayan with this blood pressure. Monitor on telemetry. 5. Lower leg cramping. resolved. 6. Schizophrenia/schizoaffective/bipolar disorder/history of psychosis. The patient has an odd personality; however, is not out of control and can be red irected with questioning currently. C/w home psychiatric medications, f/u psych consult. . 7. Petechial rash. Appears petechial; however, platelets are within normal limits. Unknown if this rash is reactive to the bug bites but it is present all over her body. Monitor closely. 8. Redness around eyes. Patient is a poor historian. Appears puffy? No muscle weakness or other plaque like skin changes. F/u closely. 9. Tobacco use. Nicotine patch. 10. DVT prophylaxis. SCDs, teds. Avoid anticoagulation with current rash. DISPOSITION: Currently admitted under inpatient status. Patient cannot return home to prior situation due to bed beg infestation. Capacity to make medical decisions is questioned, psychiatry consulted today to evaluate. Discharge plan unknown currently. VS, I&O, 24H, Fishbone Vital Signs/I&O Vital Signs Date Time Temp Pulse Resp B/P (MAP) Pulse Ox O2 Delivery O2 Flow Rate FiO2 03/30/20 14:00 99.0 77 17 143/73 (96) 95 Nasal Cannula 3.0 I&O- Last 24 Hours up to 6 AM 03/30/20 06:00 Intake Total 360 ml Output Total 2800 ml Balance -2440 ml Laboratory Data 24H LABS Laboratory Tests 2 03/30/20 05:43: Nucleated Red Blood Cells % (auto) 0.2H, Anion Gap 2L, Glomerular Filtration Rate > 60.0, Calcium Level 8.6 CBC/BMP Laboratory Tests 03/30/20 05:43 Microbiology Microbiology 03/29/20 Blood Culture - Preliminary, Resulted No growth after 24 hours . All specim... 03/29/20 Blood Culture - Preliminary, Resulted No growth after 24 hours . All specim... 03/29/20 Respiratory Virus Panel (PCR) ([facility]) - Final, Complete Current Medications Current Medications Medications (Trade) Dose Ordered Sig/Selena Route PRN Reason Start Time Stop Time Status Last Admin Dose Admin Albuterol Sulfate (Proventil Neb) 2.5 mg Q2HP PRN NEB SOB/WHEEZING 03/29/20 14:00 03/30/20 09:38 Albuterol/ Ipratropium (Combivent Respimat 100-20mcg) 4 puff Q20M INH 03/29/20 09:45 03/29/20 10:26 DC 03/29/20 09:45 Albuterol/ Ipratropium (Duoneb (Ipr 0.5mg/Alb 2.5mg)) 3 ml RQ6H NEB 03/29/20 14:00 03/30/20 14:30 Furosemide (LASIX injection) 30 mg BID@0900,1700 IV 03/29/20 17:00 03/29/20 14:02 DC Furosemide (LASIX injection) 30 mg DAILY IV 03/30/20 09:00 03/30/20 09:34 Gabapentin (Neurontin) 100 mg TID PO 03/29/20 16:00 03/30/20 16:32 Home Med (Med Rec Complete!) ASDIRECTED XX 03/29/20 12:30 03/29/20 12:26 DC Methylprednisolone (SOLUmedrol) 60 mg Q8H IV 03/30/20 12:00 03/30/20 12:09 Risperidone (RisperDAL) 2 mg BID PO 03/29/20 21:00 03/30/20 09:29 Triamcinolone Acetonide (Kenalog 0.1% Cream) 1 dose Q2HP PRN TOP ITCHING/SWELLING 03/29/20 12:45 03/29/20 21:23 Allergies Coded Allergies: No Known Drug Allergies (Verified Allergy, Unknown, 03/29/20) Luz Maria Loya MD Mar 30, 2020 17:11
--- NOTE | 2020-03-30 17:54 | REPVR ---
PROCEDURE INFORMATION: Exam: CT Head Without Contrast Exam date and time: 03/30/2020 5:40 PM Age: 59 years old Clinical indication: Altered mental status/memory loss; Confusion or disorientation TECHNIQUE: Imaging protocol: Computed tomography of the head without contrast. Radiation optimization: All CT scans at this facility use at least one of these dose optimization techniques: automated exposure control; mA and/or kV adjustment per patient size (includes targeted exams where dose is matched to clinical indication); or iterative reconstruction. COMPARISON: No relevant prior studies available. FINDINGS: Brain: No acute intracranial hemorrhage, cerebral edema, or midline shift. Ventricles: No hydrocephalus. Bones/joints: There is an old left medial orbital wall fracture. Sinuses: No acute sinusitis. Mastoid air cells: Visualized mastoid air cells are well aerated. Soft tissues: Unremarkable. IMPRESSION: No acute intracranial abnormality. Electronically signed by: Rajat Degroot On 03/30/2020 17:54:35 PM
[2020-03-30] MEDS: LevoFLOXacin 500 MG TABLET PO SCH (19:48)
[2020-03-30 20:02] LABS: THYROID STIMULATING HORMONE 0.546 uIU/ML (0.358-3.740)
[2020-03-30 22:00] VITALS: BP 144/81
--- NOTE | 2020-03-30 22:18 | MHIPNPDOC ---
[facility] Progress Note Progress Note DATE OF SERVICE: 03/30/20 HISTORY: As per Dr. Loya: "Patient is a 51 atrial female with past medical history of schizoaffective disorder, schizophrenia, bipolar disorder, history of psychosis, insomnia who presented to [facility] ER after being found under picnic table near her residence. When the patient was found she was covered in bedbugs. The patient states she was sleeping outside because her house has been infested, worsening over the past 1 year. It was noted that the patient had bites all over her body and she was brought to the ER for further evaluation. In the emergency room the patient's vital signs were stable, labs were unremarkable. The patient was found to be hypoxic with PCO2 of 30s. The patient was placed on 3 L of oxygen and O2 sat increased to 95%. Chest x-ray showed Cardiomegaly with vascular congestion, question mild CHF. Heart is enlarged compared with the December 25, 2017 study. BNP was over 1000. Troponin was negative. ECG showed sinus rhythm with possible left atrial enlargement, possibl e right ventricular hypertrophy, nonspecific T-wave abnormalities. When compared to prior on file there were similar. The patient states that she has had chest pain over the past 1 year localized anteriorly, nonradiating, 3 out of 10 on pain scale, pressure-like. She states sometimes is associated with shortness of breath, which she is also had over the past 1 year. The patient is a smoker but has no diagnosis of COPD on file. She had no wheezing on exam to suspect COPD exacerbation. The patient was given Lasix and DuoNeb's in the emergency room which improved her shortness of breath somewhat but the patient still required several liters of oxygen. Over the course of her time in the emergency room they also attempted decontaminate her from bedbugs. The patient complained of intermittent bilateral lower extremity cramping, potassium was normal. Magnesium and phosphorus were pending. The patient was admitted for further treatment of acute congestive heart failure, type unknown and bedbug infestation. On admission patient denied [place], CP, cough, palpitations, abdominal pain, N/V/D or changes in bowel or bladder habits. VITAL SIGNS: See below. NEW TEST RESULTS: See below CURRENT MEDICATIONS: See below. MENTAL STATUS EXAMINATION: Patient is a 59 year old female, who is alert, superficially cooperative, laying in bed, dressed in hospital gown, sleepy . Speech: Is a little bit slurred, normal in rate, tone and volume but she has delayed responses. Thought processes including: she is not tangential, she is not circumstantial, b ut her thought process is slow, it seems as if she has some difficulty processing some concepts. Thought content: She denies SI/HI, she denies TAV hallucinations, denies thought delusions. Abstract reasoning, and computation: not assessed at this time, patient doesn't want to continue with the assessment, she tells me she wants to see me tomorrow, she says she only wants to sleep Description of associations: Somewhat loose Description of abnormal or psychotic thoughts: She denies thought delusions, denies TAV hallucinations, she is not responding to internal stimuli Judgment: Limited Insight: Limited Orientation: she knows she is at the hospital, she is oriented to person (herself) and partially to date and time Recent and remote memory: limited at this time ( it could be because she is sleepy and she says she is very tired) Attention span and concentration: easily distracted Fund of knowledge: unable to assess, patient is not cooperating and she is easily distracted. Mood: mildly irritable Affect: congruent with mood. DIAGNOSES: Schizophrenia Schizoaffective disorder Bipolar disorder History of psychosis ASSESSMENT: Patient seems to be confused at this time but this is probably because is late already ( 10 P.M). She was sleeping when I zoomed with her and it was difficult to wake her up. When she opened her eyes it took her sometime to be able to speak and follow the conversation. She said she was not suicidal, not homicidal and not psychotic. She is not responding to internal stimuli but her thought process is slow and she has delayed responses. I told her why I needed to evaluate her and I said I wanted to make sure that she understood why she was at the hospital. I talked to her about the bed bugs and she said "oh yeah, the bed bugs". She didn't want to talk to me anymore but it was because she was "very tired" as she said and she told me she would be willing to talk to me tomorrow. She doesn't give me the impresion of being psychotic at this time. Spoke with Dr. Loya this afternoon and said I would consider doing a CT scan of the head to r/o other medical problems. I will contact Dr. Loya tomorrow and will zoom with the patient again tomorrow. medication adjustments at this time. MANAGEMENT PLAN: Continue with current treatment plan. Zoom with her tomorrow TIME SPENT: 15 minutes. Vital Signs Vital Signs Date Time Temp Pulse Resp B/P (MAP) Pulse Ox O2 Delivery O2 Flow Rate FiO2 03/30/20 14:00 99.0 77 17 143/73 (96) 95 Nasal Cannula 3.0 Laboratory Data 24H Labs Laboratory Tests 2 03/30/20 05:43: Nucleated Red Blood Cells % (auto) 0.2H, Anion Gap 2L, Glomerular Filtration Rate > 60.0, Calcium Level 8.6 03/30/20 19:04: Erythrocyte Sedimentation Rate 10, Thyroid Stimulating Hormone (TSH) 0.546 CBC/BMP Laboratory Tests 03/30/20 05:43 Current Medications Current Medications Medications (Trade) Dose Ordered Sig/Selena Route PRN Reason Start Time Stop Time Status Last Admin Dose Admin Albuterol Sulfate (Proventil Neb) 2.5 mg Q2HP PRN NEB SOB/WHEEZING 03/29/20 14:00 03/30/20 09:38 Albuterol/ Ipratropium (Combivent Respimat 100-20mcg) 4 puff Q20M INH 03/29/20 09:45 03/29/20 10:26 DC 03/29/20 09:45 Albuterol/ Ipratropium (Duoneb (Ipr 0.5mg/Alb 2.5mg)) 3 ml RQ6H NEB 03/29/20 14:00 03/30/20 14:30 Furosemide (LASIX injection) 30 mg BID@0900,1700 IV 03/29/20 17:00 03/29/20 14:02 DC Furosemide (LASIX injection) 30 mg DAILY IV 03/30/20 09:00 03/30/20 09:34 Gabapentin (Neurontin) 100 mg TID PO 03/29/20 16:00 03/30/20 20:08 Home Med (Med Rec Complete!) ASDIRECTED XX 03/29/20 12:30 03/29/20 12:26 DC Levofloxacin (Levaquin) 500 mg DAILY@1800 PO 03/30/20 18:00 03/30/20 19:48 Methylprednisolone (SOLUmedrol) 60 mg Q8H IV 03/30/20 12:00 03/30/20 20:08 Nicotine (Nicoderm Cq 14mg) 1 patch DAILY TD 03/31/20 09:00 Risperidone (RisperDAL) 2 mg BID PO 03/29/20 21:00 03/30/20 20:08 Triamcinolone Acetonide (Kenalog 0.1% Cream) 1 dose Q2HP PRN TOP ITCHING/SWELLING 03/29/20 12:45 03/29/20 21:23 Allergies Coded Allergies: No Known Drug Allergies (Verified Allergy, Unknown, 03/29/20) PRUDENCE MOSHER MD Mar 30, 2020 22:18
[2020-03-31] MEDS: IPRATROPIUM 0.5MG/ALBUTEROL 2.5MG INH SOL UD 3ML (DUONEB) NEB SCH ×5 (01:55→20:00)
[2020-03-31] MEDS: methylPREDNISolone 125MG 2ML VIAL IV SCH ×3 (04:27→20:29)
[2020-03-31 06:00] VITALS: BP 101/62
[2020-03-31 06:14] LABS: HEMATOCRIT 34.2 % (36.0-47.0); HEMOGLOBIN 10.1 g/dl (12.0-15.5); MEAN CORPUSCULAR HEMOGLOBIN 25.4 pg (27.0-33.0); MEAN CORPUSCULAR HGB CONC 29.5 g/dl (32.0-36.5); MEAN CORPUSCULAR VOLUME 85.9 fl (80.0-96.0); PLATELET COUNT, AUTOMATED 220 10^3/uL (150-450); RED BLOOD COUNT 3.98 10^6/uL (4.00-5.40); WHITE BLOOD COUNT 8.3 10^3/uL (4.0-10.0)
[2020-03-31 06:40] LABS: BLOOD UREA NITROGEN 16 MG/DL (7-18); CALCIUM LEVEL 8.9 MG/DL (8.5-10.1); CARBON DIOXIDE LEVEL 40 MEQ/L (21-32); CHLORIDE LEVEL 99 MEQ/L (98-107); CREATININE FOR GFR 0.51 MG/DL (0.55-1.30); GLOMERULAR FILTRATION RATE > 60.0 (>51); GLUCOSE, FASTING 119 MG/DL (70-100); POTASSIUM SERUM 4.4 MEQ/L (3.5-5.1); SODIUM LEVEL 137 MEQ/L (136-145)
--- NOTE | 2020-03-31 08:06 | ECHO ---
DATE OF STUDY: 03/30/2020 REFERRING PHYSICIAN: Dr. Isiah Loya INDICATION: Heart failure unspecified. HEIGHT: 145 cm. WEIGHT: 45 kg. 2-D MEASUREMENTS: Ventricular septum: 0.89 cm Posterior wall: 1.03 cm Left ventricle diastole: 3.8 cm Left atrium: 3.0 cm Aortic root: 2.6 cm Aortic annulus: 2.0 cm Inferior vena cava: 2.1 cm (more than 50% respiratory variation) DOPPLER MEASUREMENTS: Aortic valve velocity: 154 cm/sec LVOT velocity: 113 cm/sec LVOT VTI: 20.4 cm No aortic regurgitation Trace mitral regurgitation Mitral E velocity: 86.4 cm/sec Mitral A velocity: 76.0 cm/sec Mitral deceleration time: 173 ms Mild tricuspid regurgitation Estimated right ventricular systolic pressure 54-59 mmHg assuming a right atrial pressure of 5-10 mmHg No pulmonic regurgitation MITRAL ANNULAR TISSUE DOPPLER: E prime septal: 8.3 cm/sec E prime lateral: 9.9 cm/sec DESCRIPTION: The rhythm was sinus. Image quality was fair. This was a 2-D, M-mode, color flow Doppler and pulse wave Doppler examination and included mitral annular tissue Doppler. CONCLUSIONS: 1. Suggestive of moderate elevation of estimated right ventricle systolic pressure (4-59 mmHg). Mild tricuspid regurgitation. Normal appearing tricuspid leaflets. Appearance of mild right ventricle dilatation. Normal RV systolic function. 2. Very small pericardial effusion which was circumferential. Pericardial effusion measured 4 mm over the inferior wall of the ventricles and 7 mm over the posterior wall of the left ventricle. 3. Normal left ventricle internal dimensions and wall thickness. Hyperdynamic LV systolic function. LVEF 70-75% by visual estimate. No regional LV wall motion abnormalities. Normal LV diastolic function for age. 4. Otherwise normal appearing echocardiogram Doppler findings.
[2020-03-31] MEDS: QUEtiapine FUMARATE 12.5 MG HALF-TAB PO SCH ×2 (09:00→20:29)
[2020-03-31] MEDS: GABAPENTIN 100 MG CAP PO SCH ×4 (09:00→20:29)
[2020-03-31] MEDS: risperiDONE 2 MG TAB PO SCH ×3 (09:00→20:29)
[2020-03-31] MEDS: FUROSEMIDE 40MG/4ML VIAL (J1940) IV SCH (10:38)
[2020-03-31] MEDS: NICOTINE 14 MG/24 HR TRANSDERMAL TD SCH (10:39)
[2020-03-31 11:32] LABS: ABG BASE EXCESS 11.1 (-2.0-2.0); ABG HCO3 37.5 MEQ/L (22.0-26.0); ABG O2 SATURATION 86.5 % (95.0-99.0); ABG PARTIAL PRESSURE CO2 58.5 mmHg (35.0-45.0); ABG PARTIAL PRESSURE O2 52.1 mmHg (75.0-100.0); ABG STANDARD HCO3 34.6 MEQ/L (22.0-26.0); ABG TOTAL CO2 39.3 MEQ/L (22.0-29.0); ABG pH (ARTERIAL) 7.425 UNITS (7.350-7.450)
[2020-03-31] MEDS ORDERED: HALOPERIDOL 5MG/ML VIAL (J1630 PER 1) IM STA (12:05)
[2020-03-31] MEDS ORDERED: LORazepam 2 MG/ML VIAL IV STA (13:09)
--- NOTE | 2020-03-31 13:18 | REP ---
CHEST, SINGLE VIEW: Single view of the chest is performed and compared to a prior study of 03/29/2020. The heart appears slightly enlarged. Vascular congestion appears somewhat improved. No focal infiltrate is seen. The mediastinal silhouette is unchanged. Electronically Signed by Diego Godinez MD 04/01/2020 04:38 P
--- NOTE | 2020-03-31 13:22 | IPNPDOC ---
Subjective Date Seen The patient was seen on 03/31/20. Subjective Chief Complaint/HPI Patient is agitated, refusing to keep her oxygen on throwing her medications away. Not cooperating with nursing staff, unable to understand the importance of oxygen supplement and her meds. General: Reports: ROS Unobtainable Objective Physical Examination General Exam: Positive: Other (agitated) Chest Exam: Positive: Clear to auscultation, Normal air movement Heart Exam: Positive: Rate Normal, Normal S1, Normal S2 Abdomen Exam: Positive: Normal bowel sounds Extremity Exam: Positive: Normal pulses Assessment /Plan Problems (1) Acute respiratory failure with hypoxia Status: Acute Problem Text: Acute hypoxic respiratory failure secondary to congestive heart failure (new diagnosis) and COPD exacerbation. pt is refusing to keep her oxygen or take take her meds secondary to her underlying psychiatric illness Prescribe Haldol and 80 when to calm patient and so that we can restart her oxygen and treatment, which is needed secondary to COPD and CHF Also was prescribed Seroquel 12.5 mg by mouth twice a day to control her psychiatric symptoms (2) New onset of congestive heart failure Status: Acute Problem Text: Congestive heart failure exacerbation, new diagnosis. Neg 2.4 L/24 hrs. Currently remains on 3 L NC. Not on home O2, smoker. Echo today. C/w lasix, holding BB due to lower than normal BP. Follow-up echocardiogram, telemetry. (3) Infestation by bed bug Status: Acute Problem Text: Secondary to homelessness (4) Schizoaffective disorder Status: Acute Problem Text: Psychiatric consult noted Patient evaluated and will start Haldol 5 mg IM 1 and Ativan 1 milligrams IV 1now Then Seroquel 12.5 mg by mouth twice a day Further, as per psychiatry (5) COPD exacerbation Status: Acute Problem Text: Continue nebulizer treatment and oxygen supplement as per orders We'll try to calm patient down before she receives her treatment Plan/VTE VTE Prophylaxis Ordered?: Yes VS, I&O, 24H, Fishbone Vital Signs/I&O Vital Signs Date Time Temp Pulse Resp B/P (MAP) Pulse Ox O2 Delivery O2 Flow Rate FiO2 03/31/20 06:00 97.3 87 22 101/62 (75) 97 Nasal Cannula 6.0 I&O- Last 24 Hours up to 6 AM 03/31/20 05:59 Intake Total 1040 ml Output Total 550 ml Balance 490 ml Laboratory Data 24H LABS Laboratory Tests 2 03/30/20 19:04: Erythrocyte Sedimentation Rate 10, Thyroid Stimulating Hormone (TSH) 0.546 03/31/20 05:42: Nucleated Red Blood Cells % (auto) 0.0, Anion Gap , Glomerular Filtration Rate > 60.0, Calcium Level 8.9 03/31/20 11:19: Blood Gas Bicarbonate Standard 34.6H, Arterial Blood pH 7.425, Arterial Blood Partial Pressure CO2 58.5H, Arterial Blood Partial Pressure O2 52.1L, Arterial Blood Total CO2 39.3H, Arterial Blood HCO3 37.5H, Arterial Blood Base Excess 11. 1H, Arterial Blood Oxygen Saturation 86.5L CBC/BMP Laboratory Tests 03/31/20 05:42 Microbiology Microbiology 03/29/20 Blood Culture - Preliminary, Resulted No Growth after 48 hours. All Specime... 03/29/20 Blood Culture - Preliminary, Resulted No Growth after 48 hours. All Specime... 03/29/20 Respiratory Virus Panel (PCR) ([facility]) - Final, Complete CHAZ PATEL MD Mar 31, 2020 13:22
[2020-03-31 14:00] VITALS: BP 133/67
[2020-03-31] MEDS: LevoFLOXacin 500 MG TABLET PO SCH (18:00)
[2020-03-31 22:00] VITALS: BP 105/55
[2020-04-01] MEDS: IPRATROPIUM 0.5MG/ALBUTEROL 2.5MG INH SOL UD 3ML (DUONEB) NEB SCH ×4 (02:00→20:00)
[2020-04-01] MEDS: methylPREDNISolone 125MG 2ML VIAL IV SCH ×3 (03:42→21:47)
[2020-04-01 05:50] VITALS: BP 88/50
[2020-04-01 06:00] VITALS: BP 85/49
[2020-04-01] MEDS ORDERED: NS 500 ML IV ONE (06:00)
[2020-04-01 06:07] LABS: BASO % 0.1 % (0.0-1.0); HEMATOCRIT 37.7 % (36.0-47.0); HEMOGLOBIN 11.1 g/dl (12.0-15.5); LYMPH # 0.5 10^3/uL (1.5-5.0); LYMPH % 4.7 % (24.0-44.0); MEAN CORPUSCULAR HEMOGLOBIN 25.2 pg (27.0-33.0); MEAN CORPUSCULAR HGB CONC 29.4 g/dl (32.0-36.5); MEAN CORPUSCULAR VOLUME 85.5 fl (80.0-96.0); MONO # 0.4 10^3/uL (0.0-0.8); MONO % 4.1 % (0.0-5.0); NEUTROPHILS # 8.6 10^3/uL (1.5-8.5); NEUTROPHILS % 90.7 % (36.0-66.0); PLATELET COUNT, AUTOMATED 249 10^3/uL (150-450); RED BLOOD COUNT 4.41 10^6/uL (4.00-5.40); WHITE BLOOD COUNT 9.5 10^3/uL (4.0-10.0)
[2020-04-01 06:30] LABS: ALT/SGPT 21 U/L (12-78); BILIRUBIN,TOTAL 0.5 MG/DL (0.2-1.0); BLOOD UREA NITROGEN 24 MG/DL (7-18); CALCIUM LEVEL 9.1 MG/DL (8.5-10.1); CARBON DIOXIDE LEVEL 42 MEQ/L (21-32); CHLORIDE LEVEL 96 MEQ/L (98-107); CREATININE FOR GFR 0.56 MG/DL (0.55-1.30); GLOMERULAR FILTRATION RATE > 60.0 (>51); GLUCOSE, FASTING 121 MG/DL (70-100); SODIUM LEVEL 142 MEQ/L (136-145); TOTAL PROTEIN 6.3 GM/DL (6.4-8.2)
[2020-04-01 07:50] VITALS: BP 88/52
[2020-04-01] MEDS: risperiDONE 2 MG TAB PO SCH ×2 (09:40→21:47)
[2020-04-01] MEDS: QUEtiapine FUMARATE 12.5 MG HALF-TAB PO SCH ×2 (09:40→21:47)
[2020-04-01] MEDS: NICOTINE 14 MG/24 HR TRANSDERMAL TD SCH (09:40)
[2020-04-01] MEDS: GABAPENTIN 100 MG CAP PO SCH ×3 (09:41→21:47)
[2020-04-01] MEDS: FUROSEMIDE 40MG/4ML VIAL (J1940) IV SCH (09:43)
--- NOTE | 2020-04-01 11:07 | IPNPDOC ---
Subjective Date Seen The patient was seen on 04/01/20. Subjective Chief Complaint/HPI Patient very easily arousable with local stimuli. She is more cooperative, comfortable response to simple questions, she is cooperating with her oxygen since she was started on antipsychotic medications, but is still unable to provide me with review of systems. General: Reports: ROS Unobtainable Objective Physical Examination General Exam: Positive: Alert, Other (agitated) Eye Exam: Positive: Conjunctiva & lids normal Chest Exam: Positive: Clear to auscultation, Normal air movement Heart Exam: Positive: Rate Normal, Normal S1, Normal S2 Abdomen Exam: Positive: Normal bowel sounds Extremity Exam: Positive: Normal pulses Skin Exam: Positive: Nl turgor and temperature Neuro Exam: Positive: Strength at 5/5 X4 ext, Cranial Nerves 3-12 NL Assessment /Plan Problems (1) Acute respiratory failure with hypoxia Status: Acute Problem Text: Acute hypoxic respiratory failure secondary to congestive heart failure (new diagnosis) and COPD exacerbation. pt is refusing to keep her oxygen or take take her meds secondary to her underly ing psychiatric illness Patient was prescribed Haldol yesterday along with Seroquel She has been more cooperative and responding to treatments Oxygen supplemented has been continued and all other meds. Has been provided and she is been cooperative so far (2) New onset of congestive heart failure Status: Acute Problem Text: Echocardiogram is essentially within normal limit with left ventricular ejection fraction of 70-75% and no diastolic dysfunction Patient does not require any more diuresis as no clinical evidence of congestive heart failure at the present time Monitor patient clinically (3) Infestation by bed bug Status: Acute Problem Text: Secondary to homelessness (4) Schizoaffective disorder Status: Acute Problem Text: Psychiatric consult noted Patient evaluated and will start Haldol 5 mg IM 1 and Ativan 1 milligrams IV 1now Then Seroquel 12.5 mg by mouth twice a day Further, as per psychiatry (5) COPD exacerbation Status: Acute Problem Text: Continue nebulizer treatment and oxygen supplement as per orders Patient is been cooperating with nebulizer treatment, oxygen's as per orders Continue present care. On examination her lungs are essentially clear Plan/VTE VTE Prophylaxis Ordered?: Yes VS, I&O, 24H, Fishbone Vital Signs/I&O Vital Signs Date Time Temp Pulse Resp B/P (MAP) Pulse Ox O2 Delivery O2 Flow Rate FiO2 04/01/20 07:50 88/52 (64) 04/01/20 06:00 97.3 76 18 98 Venturi Mask 6.0 03/31/20 21:00 50 I&O- Last 24 Hours up to 6 AM 04/01/20 06:00 Intake Total 940 ml Output Total 1050 ml Balance -110 ml Laboratory Data 24H LABS Laboratory Tests 2 03/31/20 11:19: Blood Gas Bicarbonate Standard 34.6H, Arterial Blood pH 7.425, Arterial Blood Partial Pressure CO2 58.5H, Arterial Blood Partial Pressure O2 52.1L, Arterial Blood Total CO2 39.3H, Arterial Blood HCO3 37.5H, Arterial Blood Base Excess 11.1H, Arterial Blood Oxygen Saturation 86.5L 03/31/20 18:55: Urine Color YELLOW, Urine Appearance CLEAR, Urine pH 6.0, Urine Specific [place] 1.013, Urine Protein NEGATIVE, Urine Glucose (UA) NEGATIVE, Urine Ketones NEGATIVE, Urine Blood NEGATIVE, Urine Nitrite NEGATIVE, Urine Bilirubin NEGATIVE, Urine Urobilinogen 0.2, Urine Leukocyte Esterase NEGATIVE, Urine WBC (Auto) 2, Urine RBC (Auto) 1, Urine Hyaline Casts (Auto) 0, Urine Bacteria (Auto) NEGATIVE, Urine Squamous Epithelial Cells 0, Urine Sperm (Auto) 04/01/20 05:42: Immature Granulocyte % (Auto) 0.4, Neutrophils (%) (Auto) 90.7H, Lymphocytes (%) (Auto) 4.7L, Monocytes (%) (Auto) 4.1, Eosinophils (%) (Auto) 0.0, Basophils (%) (Auto) 0.1, Neutrophils # (Auto) 8.6H, Lymphocytes # (Auto) 0.5L, Monocytes # (Auto) 0.4, Eosinophils # (Auto) 0.0, Basophils # (Auto) 0.0, Nucleated Red Blood Cells % (auto) 0.2H, Anion Gap 4L, Glomerular Filtration Rate > 60.0, Calcium Level 9.1, Total Bilirubin 0.5, Aspartate Amino Transf (AST/SGOT) 7, Alanine Aminotransferase (ALT/SGPT) 21, Alkaline Phosphatase 53, Total Protein 6.3L, Albumin 3.0L, Albumin/Globulin Ratio 0.9L CBC/BMP Laboratory Tests 04/01/20 05:42 Microbiology Microbiology 03/29/20 Blood Culture - Preliminary, Resulted No Growth after 72 hours. All specime... 03/29/20 Blood Culture - Preliminary, Resulted No Growth after 72 hours. All specime... 03/29/20 Respiratory Virus Panel (PCR) ([facility]) - Final, Complete CHAZ PATEL MD Apr 01, 2020 11:07
[2020-04-01 11:42] LABS: NT-PRO BNP 750 PG/ML (<125)
[2020-04-01 14:00] VITALS: BP 91/54
[2020-04-01 16:08] LABS: ANTI DOUBLE STRAND-DNA AB <1 IU/mL (0-9); ANTINUCLEAR ANTIBODIES DIRECT Positive (Negative); RNP ANTIBODIES 1.7 AI (0.0-0.9); SJOGREN'S ANTI SS-A <0.2 AI (0.0-0.9); SJOGREN'S ANTI SS-B <0.2 AI (0.0-0.9); SMITH ANTIBODIES <0.2 AI (0.0-0.9)
[2020-04-01] MEDS: LevoFLOXacin 500 MG TABLET PO SCH (17:03)
[2020-04-01 22:00] VITALS: BP 91/53
[2020-04-02] MEDS: IPRATROPIUM 0.5MG/ALBUTEROL 2.5MG INH SOL UD 3ML (DUONEB) NEB SCH ×3 (01:11→13:42)
[2020-04-02] MEDS: methylPREDNISolone 125MG 2ML VIAL IV SCH (03:35)
[2020-04-02 06:00] VITALS: BP 98/56
[2020-04-02 07:00] LABS: HEMATOCRIT 39.7 % (36.0-47.0); HEMOGLOBIN 11.6 g/dl (12.0-15.5); LYMPH # 0.4 10^3/uL (1.5-5.0); LYMPH % 5.4 % (24.0-44.0); MEAN CORPUSCULAR HEMOGLOBIN 24.9 pg (27.0-33.0); MEAN CORPUSCULAR HGB CONC 29.2 g/dl (32.0-36.5); MEAN CORPUSCULAR VOLUME 85.2 fl (80.0-96.0); MONO # 0.2 10^3/uL (0.0-0.8); MONO % 2.6 % (0.0-5.0); NEUTROPHILS # 6.9 10^3/uL (1.5-8.5); NEUTROPHILS % 91.5 % (36.0-66.0); PLATELET COUNT, AUTOMATED 259 10^3/uL (150-450); RED BLOOD COUNT 4.66 10^6/uL (4.00-5.40); WHITE BLOOD COUNT 7.6 10^3/uL (4.0-10.0)
[2020-04-02 07:18] LABS: ALBUMIN 2.9 GM/DL (3.2-5.2); ALT/SGPT 19 U/L (12-78); BILIRUBIN,TOTAL 0.5 MG/DL (0.2-1.0); BLOOD UREA NITROGEN 25 MG/DL (7-18); CALCIUM LEVEL 8.9 MG/DL (8.5-10.1); CARBON DIOXIDE LEVEL 41 MEQ/L (21-32); CHLORIDE LEVEL 98 MEQ/L (98-107); CREATININE FOR GFR 0.58 MG/DL (0.55-1.30); GLOMERULAR FILTRATION RATE > 60.0 (>51); GLUCOSE, FASTING 125 MG/DL (70-100); POTASSIUM SERUM 3.9 MEQ/L (3.5-5.1); SODIUM LEVEL 142 MEQ/L (136-145); TOTAL PROTEIN 6.4 GM/DL (6.4-8.2)
[2020-04-02] MEDS ORDERED: predniSONE 10 MG TAB PO SCH (09:00)
[2020-04-02] MEDS: risperiDONE 2 MG TAB PO SCH (09:15)
[2020-04-02] MEDS: QUEtiapine FUMARATE 12.5 MG HALF-TAB PO SCH (09:15)
[2020-04-02] MEDS: GABAPENTIN 100 MG CAP PO SCH ×2 (09:15→16:00)
[2020-04-02] MEDS: NICOTINE 14 MG/24 HR TRANSDERMAL TD SCH (09:16)
--- NOTE | 2020-04-02 10:36 | IPNPDOC ---
Subjective Date Seen The patient was seen on 04/02/20. Subjective Chief Complaint/HPI Patient remained cooperative and comfortable in no distress. Once take her oxygen off and wants to leave soon. General: Denies: ROS Unobtainable, Chills, Night Sweats, Fatigue, Malaise, Normal Appetite, Other Symptoms Constitutional: Denies: Chills, Fever, Malaise, Night Sweats, Weakness, Fatigue, Weight Loss, Lethargy, Other Pulmonary: Denies: Dyspnea, Cough, Pleuritic Chest Pain, Other Symptoms Cardiovascular: Denies: Chest Pain, Palpitations, Orthopnea, Paroxysmal Noc. Dyspnea, Edema, Lt Headedness, Other Symptoms Gastrointestinal: Denies: Nausea, Vomiting, Abdominal Pain, Diarrhea, Constipation, Melena, Hematochezia, Other Symptoms Genitourinary: Denies: Dysuria, Frequency, Incontinence, Hematuria, Retention, Other Symptoms Hematologic: Denies: Bruising, Bleeding Excessively, Petecchia, Purpura, Enlarged Lymph Nodes, Other Hematologic Endocrine: Denies: Polydipsia, Polyphagia, Polyuria, Heat Intolerance, Cold Intolerance, Other Endocrine Sx Neurological: Denies: Weakness, Numbness, Incoordination, Change in speech, Confusion, Seizures, Other Symptoms Psych: Denies: Mood Normal, Anxiety, Depression, Memory Issues, Thoughts of Self Harm, Anger, Thoughts of Harming Other, Other Psych Objective Physical Examination General Exam: Positive: Alert, Other (agitated) Eye Exam: Positive: Conjunctiva & lids normal Chest Exam: Positive: Clear to auscultation, Normal air movement Heart Exam: Positive: Rate Normal, Normal S1, Normal S2 Abdomen Exam: Positive: Normal bowel sounds Extremity Exam: Positive: Normal pulses Skin Exam: Positive: Nl turgor and temperature Neuro Exam: Positive: Strength at 5/5 X4 ext, Cranial Nerves 3-12 NL Assessment /Plan Problems (1) Acute respiratory failure with hypoxia Status: Acute Problem Text: Acute hypoxic respiratory failure secondary to exacerbation of COPD, doubt there is any evidence of CHF. His echocardiogram is essentially within normal limits and there is no any other clinical features of congestive heart failure on examination Patient is saturating very well on 3 L nasal cannula. She is active smoker, hence, she is also on nicotine patch Will try to wean oxygen off as she not on oxygen at home Continue nebulizer treatment and change IV steroids to by mouth prednisone 30 mg daily Patient has a long-standing psych disorder. Discussed with Dr. Dotson, she agreed with current management with Seroquel and advised to increase the dose if needed. Dr. Dotson is unable to sleep patient physically in the hospital, but she izoomed and saw the patient. Discharge planning discussed with PFS (2) New onset of congestive heart failure Status: Resolved Problem Text: Echocardiogram is essentially within normal limit with left ventricular ejection fraction of 70-75% and no diastolic dysfunction Patient does not require any more diuresis as no clinical evidence of congestive heart failure at the present time Monitor patient clinically (3) Infestation by bed bug Status: Acute Problem Text: Secondary to homelessness (4) Schizoaffective disorder Status: Acute Problem Text: Psychiatric consult noted Patient evaluated and will start Haldol 5 mg IM 1 and Ativan 1 milligrams IV 1now Then Seroquel 12.5 mg by mouth twice a day Discussed with Dr. Dotson agreed with current management (5) COPD exacerbation Status: Acute Problem Text: Continue nebulizer treatment and oxygen supplement as per orders Will change IV steroids to prednisone 30 mg by mouth daily Patient is been cooperating with nebulizer treatment, off oxygen Continue present care. On examination her lungs are essentially clear Plan/VTE VTE Prophylaxis Ordered?: Yes VS, I&O, 24H, Fishbone Vital Signs/I&O Vital Signs Date Time Temp Pulse Resp B/P (MAP) Pulse Ox O2 Delivery O2 Flow Rate FiO2 04/02/20 06:55 3.0 04/02/20 06:00 98.8 89 16 98/56 (70) 91 Nasal Cannula 04/01/20 09:45 50 I&O- Last 24 Hours up to 6 AM 04/02/20 06:00 Intake Total 860 ml Balance 860 ml Laboratory Data 24H LABS Laboratory Tests 2 04/02/20 06:01: Immature Granulocyte % (Auto) 0.5, Neutrophils (%) (Auto) 91.5H, Lymphocytes (%) (Auto) 5.4L, Monocytes (%) (Auto) 2.6, Eosinophils (%) (Auto) 0.0, Basophils (%) (Auto) 0.0, Neutrophils # (Auto) 6.9, Lymphocytes # (Auto) 0.4L, Monocytes # (Auto) 0.2, Eosinophils # (Auto) 0.0, Basophils # (Auto) 0.0, Nucleated Red Blood Cells % (auto) 0.0, Anion Gap 3L, Glomerular Filtration Rate > 60.0, Calcium Level 8.9, Total Bilirubin 0.5, Aspartate Amino Transf (AST/SGOT) 9, Alanine Aminotransferase (ALT/SGPT) 19, Alkaline Phosphatase 51, Total Protein 6.4, Albumin 2.9L, Albumin/Globulin Ratio 0.8L CBC/BMP Laboratory Tests 04/02/20 06:01 Microbiology Microbiology 03/29/20 Blood Culture - Preliminary, Resulted No Growth after 72 hours. All specime... 03/29/20 Blood Culture - Preliminary, Resulted No Growth after 72 hours. All specime... 03/29/20 Respiratory Virus Panel (PCR) ([facility]) - Final, Complete CHAZ PATEL MD Apr 02, 2020 10:36
[2020-04-02 14:00] VITALS: BP 100/58
[2020-04-02] MEDS ORDERED: NICO14PA TD (16:55)
[2020-04-02] MEDS ORDERED: PRED10TA2 PO (16:55)
[2020-04-02] MEDS ORDERED: COMBAER6 INH (16:55)
--- NOTE | 2020-04-02 16:59 | DS.PDOC ---
Discharge Summary General Date of Admission Mar 29, 2020 at 12:31 Date of Discharge 04/02/20 Discharge Summary PROCEDURES PERFORMED DURING STAY: None. ADMITTING DIAGNOSES: 1. Acute respiratory failure with hypoxia. DISCHARGE DIAGNOSES: 1. Acute respiratory failure with hypoxia, exacerbation of COPD, history of bed bugs infestation, still history of psychosis, history of schizophrenia, schizoaffective disorder, bipolar disorder. COMPLICATIONS/CHIEF COMPLAINT: Acute Respiratory Failure With Hypoxia. HISTORY OF PRESENT ILLNESS: Patient is a 51 atrial female with past medical history of schizoaffective disorder, schizophrenia, bipolar disorder, history of psychosis, insomnia who presented to [facility] ER after being found under picnic table near her residence. When the patient was found she was covered in bedbugs. The patient states she was sleeping outside because her house has been infested, worsening over the past 1 year. It was noted that the patient had bites all over her body and she was brought to the ER for further evaluation. In the emergency room the patient's vital signs were stable, labs were unremarkable. The patient was found to be hypoxic with PCO2 of 30s. The patient was placed on 3 L of oxygen and O2 sat increased to 95%. Chest x-ray showed Cardiomegaly with vascular congestion, question mild CHF. Heart is enlarged compared with the December 25, 2017 study. BNP was over 1000. Troponin was negative. ECG showed sinus rhythm with possible left atrial enlargement, possib le right ventricular hypertrophy, nonspecific T-wave abnormalities. When compared to prior on file there were similar. The patient states that she has had chest pain over the past 1 year localized anteriorly, nonradiating, 3 out of 10 on pain scale, pressure-like. She states sometimes is associated with shortness of breath, which she is also had over the past 1 year. The patient is a smoker but has no diagnosis of COPD on file. She had no wheezing on exam to suspect COPD exacerbation. The patient was given Lasix and DuoNeb's in the emergency room which improved her shortness of breath somewhat but the patient still required several liters of oxygen. Over the course of her time in the emergency room they also attempted decontaminate her from bedbugs. The patient complained of intermittent bilateral lower extremity cramping, potassium was normal. Magnesium and phosphorus were pending. The patient was admitted for further treatment of acute congestive heart failure, type unknown and bedbug infestation. On admission patient denied [place], CP, cough, palpitations, abdominal pain, N/V/D or changes in bowel or bladder habits.]. HOSPITAL COURSE: Acute hypoxic respiratory failure secondary to exacerbation of COPD, doubt there is any evidence of CHF. His echocardiogram is essentially within normal limits and there is no any other clinical features of congestive heart failure on examination Patient is saturating very well on 3 L nasal cannula. She is active smoker, hence, she is also on nicotine patch Will try to wean oxygen off as she not on oxygen at home Continue nebulizer treatment and change IV steroids to by mouth prednisone 30 mg daily Patient has a long-standing psych disorder. Discussed with Dr. Dotson, she agreed with current management with Seroquel and advised to increase the dose if needed. Dr. Dotson is unable to sleep patient physically in the hospital, but she zoomed and saw the patient and interviewed her, as per Dr. Dotson patient is not suicidal or homicidal and she is able to make her medical decisions. Later this evening. Patient refuses to wear oxygen and wanted to sign out AMA, I went and examined at the bedside, she is alert, oriented 3, I explained all the consequences of signing AGAINST MEDICAL ADVICE, which include respiratory failure, respiratory arrest and , but she understands very well and signed AGAINST MEDICAL ADVICE and left the hospital. Patient was advised to return to ER if symptoms continue or get worse or call 911 immediately to be brought to emergency room. She will continue all home medication. I also have prescribed her Combivent, prednisone, and nicotine patch. . DISCHARGE MEDICATIONS: Please see below. ALLERGIES: Please see below. PHYSICAL EXAMINATION ON DISCHARGE: Patient signed out AMA. This evening. patient was examined earlier this morning, Please review the progress note of 04/02/2020 LABORATORY DATA: Please see below. IMAGING: Chest x-ray: Single view of the chest is performed and compared to a prior study of 03/29/2020. The heart appears slightly enlarged. Vascular congestion appears somewhat improved. No focal infiltrate is seen. The mediastinal silhouette is unchanged. PROGNOSIS: Unknown ACTIVITY: As tolerated. DIET: As tolerated DISCHARGE PLAN: Patient signed out AMA, but has been advised to follow with PCP as soon as possible. Return to emergency room if shortness of breath. Records are gets worse DISPOSITION: . AMA DISCHARGE INSTRUCTIONS: 1. As per discharge instructions. ITEMS TO FOLLOWUP ON ON OUTPATIENT: 1. As above. DISCHARGE CONDITION: Stable. TIME SPENT ON DISCHARGE: 20 minutes. Vital Signs/I&Os Vital Signs Date Time Temp Pulse Resp B/P (MAP) Pulse Ox O2 Delivery O2 Flow Rate FiO2 04/02/20 14:00 97.8 87 19 100/58 (72) 95 Nasal Cannula 3.0 04/01/20 09:45 50 I&O- Last 24 Hours up to 6 AM 04/02/20 06:00 Intake Total 860 ml Balance 860 ml Laboratory Data Labs 24H Laboratory Tests 2 04/02/20 06:01: Immature Granulocyte % (Auto) 0.5, Neutrophils (%) (Auto) 91.5H, Lymphocytes (%) (Auto) 5.4L, Monocytes (%) (Auto) 2.6, Eosinophils (%) (Auto) 0.0, Basophils (%) (Auto) 0.0, Neutrophils # (Auto) 6.9, Lymphocytes # (Auto) 0.4L, Monocytes # (Au to) 0.2, Eosinophils # (Auto) 0.0, Basophils # (Auto) 0.0, Nucleated Red Blood Cells % (auto) 0.0, Anion Gap 3L, Glomerular Filtration Rate > 60.0, Calcium Level 8.9, Total Bilirubin 0.5, Aspartate Amino Transf (AST/SGOT) 9, Alanine Aminotransferase (ALT/SGPT) 19, Alkaline Phosphatase 51, Total Protein 6.4, Albumin 2.9L, Albumin/Globulin Ratio 0.8L CBC/BMP Laboratory Tests 04/02/20 06:01 Microbiology Microbiology 03/29/20 Blood Culture - Preliminary, Resulted No Growth after 72 hours. All specime... 03/29/20 Blood Culture - Preliminary, Resulted No Growth after 72 hours. All specime... 03/29/20 Respiratory Virus Panel (PCR) ([facility]) - Final, Complete Discharge Medications Scheduled Gabapentin (Neurontin) 100 Mg Cap, 100 MG PO TID, (Reported) Ipratropium/Albuterol Sulfate (Combivent Respimat 20-100 Mcg) 4 Gm Mist.inhal, 1 PUFF INH QID Melatonin (Melatonin) 5 Mg Tablet, 5 MG PO QHS, (Reported) pt states that she has not started this yet Nicotine (Nicotine Patch) 14 Mg Patch.td24, 1 PATCH TD DAILY Prednisone (Prednisone) 10 Mg Tablet, 10 MG PO TAPER Take 4 tabs daily x 3 days, then 3 tabs daily x 3 days, then 2 tabs daily x 3 days, then 1 tab daily x 3 days and stop Risperidone (Risperidone) 2 Mg Tablet, 2 MG PO BID, (Reported) Allergies Coded Allergies: No Known Drug Allergies (Verified Allergy, Unknown, 03/29/20) CHAZ PATEL MD Apr 02, 2020 16:59
== END 2020-04-02 18:08 | disposition left against medical advice (07) | DRG 190 ==
LOC: M ED 08:26 → M ED INP 12:31 → ENRESERV 12:48 → M MSPAV 14:14
PROVIDERS: ADMIT Internal Medicine; ATTEND Internal Medicine
DX: J44.1 Chronic obstructive pulmonary disease with (acute) exacerbation (principal); J96.01 Acute respiratory failure with hypoxia; I95.9 Hypotension, unspecified; F25.9 Schizoaffective disorder, unspecified; I50.9 Heart failure, unspecified; F31.9 Bipolar disorder, unspecified; Z79.899 Other long term (current) drug therapy; F17.200 Nicotine dependence, unspecified, uncomplicated; R21 Rash and other nonspecific skin eruption

== ENCOUNTER → 2020-05-11 | Outpatient (REF) | payer OTHER, MEDICAID ==
[~2020-05-11] MED LIST changes: +COMBAER6 INH; +MELATAB3 PO; +NICO14PA TD; +PRED10TA2 PO; -QUET50TA3 PO; +QUET5TAB PO; +RISP2TAB3 PO
[2020-06-07 05:05] LABS: BASO # 0.1 10^3/uL (0.0-0.2); EOS # 0.1 10^3/uL (0.0-0.5); EOS % 0.8 % (0.0-3.0); HEMATOCRIT 38.1 % (36.0-47.0); HEMOGLOBIN 11.1 g/dl (12.0-15.5); LYMPH # 1.1 10^3/uL (1.5-5.0); LYMPH % 17.5 % (24.0-44.0); MEAN CORPUSCULAR HEMOGLOBIN 23.3 pg (27.0-33.0); MEAN CORPUSCULAR HGB CONC 29.1 g/dl (32.0-36.5); MEAN CORPUSCULAR VOLUME 79.9 fl (80.0-96.0); MONO # 0.7 10^3/uL (0.0-0.8); MONO % 10.4 % (0.0-5.0); NEUTROPHILS # 4.4 10^3/uL (1.5-8.5); NEUTROPHILS % 70.1 % (36.0-66.0); PLATELET COUNT, AUTOMATED 265 10^3/uL (150-450); RED BLOOD COUNT 4.77 10^6/uL (4.00-5.40); WHITE BLOOD COUNT 6.3 10^3/uL (4.0-10.0)
[2020-06-07 05:09] LABS: AMORPHOUS SEDIMENT SMALL (NEGATIVE); APPEARANCE, URINE HAZY (CLEAR); BACTERIA, URINE AUTO NEGATIVE (NEGATIVE); BILIRUBIN, URINE AUTO NEGATIVE (NEGATIVE); BLOOD, URINE BLOOD NEGATIVE (NEGATIVE); COLOR, URINE YELLOW (YELLOW); GLUCOSE, URINE (UA) AUTO NEGATIVE (NEGATIVE); KETONE, URINE AUTO NEGATIVE (NEGATIVE); LEUKOCYTE ESTERASE, URINE AUTO NEGATIVE (NEGATIVE); MUCUS, URINE SMALL (NEGATIVE); NITRITE, URINE AUTO NEGATIVE (NEGATIVE); PROTEIN, URINE AUTO NEGATIVE (NEGATIVE); RBC, URINE AUTO 1 /HPF (0-3); SPECIFIC GRAVITY URINE AUTO 1.012 (1.002-1.035); SQUAMOUS EPITHELIAL CELL UR AU 9 /HPF (0-6); WBC, URINE AUTO 1 /HPF (0-3)
[2020-06-20 21:20] LABS: ALBUMIN 3.5 GM/DL (3.2-5.2); ALT/SGPT 24 U/L (12-78); BILIRUBIN,TOTAL 0.5 MG/DL (0.2-1.0); BLOOD UREA NITROGEN 6 MG/DL (7-18); CARBON DIOXIDE LEVEL 34 MEQ/L (21-32); CHLORIDE LEVEL 101 MEQ/L (98-107); CREATININE FOR GFR 0.78 MG/DL (0.55-1.30); FREE T4 1.13 NG/DL (0.76-1.46); GLOMERULAR FILTRATION RATE > 60.0 (>51); GLUCOSE, FASTING 84 MG/DL (70-100); HEMOGLOBIN A1c 6.4 %; POTASSIUM SERUM 4.6 MEQ/L (3.5-5.1); SODIUM LEVEL 138 MEQ/L (136-145); TOTAL 25(OH) VITAMIN D 14.7 NG/ML (30.0-100.0); TOTAL PROTEIN 6.7 GM/DL (6.4-8.2)
== END ==
LOC: M LAB REF 09:55
PROVIDERS: ATTEND Nurse Practitioner Family
DX: Z00.01 Encounter for general adult medical examination with abnormal findings (principal); Z13.9 Encounter for screening, unspecified; R06.09 Other forms of dyspnea; F17.200 Nicotine dependence, unspecified, uncomplicated; K21.9 Gastro-esophageal reflux disease without esophagitis

== ENCOUNTER → 2020-07-10 | Outpatient (CLI) | payer MEDICARE, OTHER ==
[2020-07-10 13:20] LABS: BASO # 0.1 10^3/uL (0.0-0.2); EOS # 0.1 10^3/uL (0.0-0.5); EOS % 1.1 % (0.0-3.0); HEMATOCRIT 40.7 % (36.0-47.0); HEMOGLOBIN 11.7 g/dl (12.0-15.5); LYMPH # 1.3 10^3/uL (1.5-5.0); LYMPH % 18.3 % (24.0-44.0); MEAN CORPUSCULAR HEMOGLOBIN 21.9 pg (27.0-33.0); MEAN CORPUSCULAR HGB CONC 28.7 g/dl (32.0-36.5); MEAN CORPUSCULAR VOLUME 76.1 fl (80.0-96.0); MONO # 0.6 10^3/uL (0.0-0.8); NEUTROPHILS % 70.2 % (36.0-66.0); PLATELET COUNT, AUTOMATED 241 10^3/uL (150-450); RED BLOOD COUNT 5.35 10^6/uL (4.00-5.40); WHITE BLOOD COUNT 7.1 10^3/uL (4.0-10.0)
[2020-07-10 14:05] LABS: AMPHETAMINES URINE REFLEX NEGATIVE (NEGATIVE); BARBITURATES URINE REFLEX NEGATIVE (NEGATIVE); BENZODIAZEPINES URINE REFLEX NEGATIVE (NEGATIVE); CANNABINOIDS URINE REFLEX NEGATIVE (NEGATIVE); COCAINE METABOLITE URINE REFLE NEGATIVE (NEGATIVE); METHADONE URINE REFLEX NEGATIVE (NEGATIVE); OPIATES URINE REFLEX NEGATIVE (NEGATIVE); PHENCYCLIDINE URINE REFLEX NEGATIVE (NEGATIVE)
[2020-07-10 14:16] LABS: ALBUMIN 3.3 GM/DL (3.2-5.2); ALT/SGPT 18 U/L (12-78); BILIRUBIN,TOTAL 0.3 MG/DL (0.2-1.0); BLOOD UREA NITROGEN 11 MG/DL (7-18); CARBON DIOXIDE LEVEL 35 MEQ/L (21-32); CHLORIDE LEVEL 101 MEQ/L (98-107); CREATININE FOR GFR 0.59 MG/DL (0.55-1.30); GLOMERULAR FILTRATION RATE > 60.0 (>51); GLUCOSE, FASTING 93 MG/DL (70-100); POTASSIUM SERUM 4.3 MEQ/L (3.5-5.1); SODIUM LEVEL 139 MEQ/L (136-145); TOTAL PROTEIN 6.5 GM/DL (6.4-8.2)
[2020-07-13 14:07] LABS: RISPERIDONE1 86 ng/mL (Not Estab.); RISPERIDONE2 34 ng/mL (Not Estab.); RISPERIDONE3 120 ng/mL (20-60)
== END ==
LOC: M LAB 12:04
PROVIDERS: ATTEND Nurse Practitioner Psychiatric/Mental Health
DX: F25.0 Schizoaffective disorder, bipolar type (principal)
CPT/HCPCS: 36415; 80053; 80307; 84439; 84443; 85025; G0480